=== PATIENT | male | born 1965 | race African-American/Black ===

== ENCOUNTER 2020-08-17 13:20 | Inpatient (IN) | payer BC ==
[2020-08-17] MEDS ORDERED: ALBUTEROL SO4 HFA INHALER IH ONE (14:26)
[2020-08-17 14:45] VITALS: BMI 23.2
[2020-08-17] MEDS: ALBUTEROL SO4 HFA INHALER IH PRN ×2 (14:58→22:21)
[2020-08-17] MEDS ORDERED: MAG HYDROX/AL HYDROX/SIMETH 30 ML UNIT-DOSE CUP PO PRN (15:33)
[2020-08-17] MEDS ORDERED: chlordiazePOXIDE HCL 25 MG CAPSULE PO PRN (15:33)
[2020-08-17] MEDS ORDERED: MENTHOL/PHENOL 1 EACH UD MM PRN (15:33)
[2020-08-17] MEDS ORDERED: MAGNESIUM HYDROX 2400MG/30ML ORAL SUSPENSION 30 ML CUP PO PRN (15:33)
[2020-08-17] MEDS ORDERED: NICOTINE POLACRILEX 2 MG GUM BUC PRN (15:33)
[2020-08-17] MEDS ORDERED: ACETAMINOPHEN 325 MG TABLET (FP) PO PRN ×2 (15:33)
[2020-08-17] MEDS ORDERED: BISMUTH SUBSALICYLATE 524 MG/30 ML UD PO PRN (15:33)
[2020-08-17] MEDS ORDERED: MAGNESIUM CITRATE 300 ML BOTTLE PO PRN (15:33)
[2020-08-17] MEDS ORDERED: ONDANSETRON *ODT* 4 MG TABLET SL PRN (15:33)
[2020-08-17] MEDS: LISINOPRIL 20 MG TABLET PO SCH (17:46)
[2020-08-17] MEDS: chlordiazePOXIDE HCL 25 MG CAPSULE PO SCH ×2 (17:46→22:18)
[2020-08-17] MEDS: predniSONE 20 MG TABLET (UD) PO SCH (17:46)
[2020-08-17] MEDS: hydrOXYzine PAMOATE 25 MG CAPSULE (FP) PO SCH ×2 (18:03→22:18)
[2020-08-17] MEDS: CLOTRIMAZOLE 1% CREAM 15 GM TUBE TP SCH (22:18)
[2020-08-17] MEDS: THIAMINE HCL 100 MG TABLET (FP) PO SCH (22:18)
[2020-08-17] MEDS: MELATONIN 5 MG TABLETS PO SCH (22:19)
[2020-08-18] MEDS: chlordiazePOXIDE HCL 25 MG CAPSULE PO SCH ×4 (07:02→22:15)
[2020-08-18] MEDS: hydrOXYzine PAMOATE 25 MG CAPSULE (FP) PO SCH ×5 (07:02→22:15)
[2020-08-18] MEDS ORDERED: METHADONE HCL 10 MG TABLET PO SCH (09:30)
[2020-08-18] MEDS ORDERED: METHADONE HCL 40 MG DISPERSABLE TABLET ONE (09:46)
[2020-08-18] MEDS ORDERED: METHADONE HCL 10 MG TABLET ONE (09:46)
[2020-08-18] MEDS: predniSONE 20 MG TABLET (UD) PO SCH (10:25)
[2020-08-18] MEDS: LISINOPRIL 20 MG TABLET PO SCH (10:25)
[2020-08-18] MEDS: PRENATAL VITAMINS W/ FOLIC ACID TABLET (FP) PO SCH (10:25)
[2020-08-18] MEDS: CLOTRIMAZOLE 1% CREAM 15 GM TUBE TP SCH ×2 (10:26→22:17)
[2020-08-18] MEDS: METHADONE 120 MG, METHADONE 20 MG PO SCH (10:26)
[2020-08-18] MEDS: IBUPROFEN 400 MG TABLET (FP) PO PRN (10:27)
[2020-08-18 10:37] LABS: HEMATOCRIT 38.5 % (35.4-49); HEMOGLOBIN 13.1 GM/dL (11.7-16.9); MCH 31.5 pg (25.7-33.7); MCHC 33.9 g/dl (32.0-35.9); MEAN CELL VOLUME 92.9 fl (80-96); MEAN PLT VOLUME 9.3 fl (7.5-11.1); PLATELET COUNT 350 K/MM3 (134-434); RBC 4.15 M/mm3 (4.00-5.60); RDW 16.1 % (11.9-15.9); WHITE BLOOD COUNT 5.8 K/mm3 (4.0-10.0)
[2020-08-18 11:21] LABS: POTASSIUM 3.9 mmol/L (3.5-5.1)
[2020-08-18 11:25] LABS: ALBUMIN 3.4 g/dl (3.4-5.0); BLOOD UREA NITROGEN 11.7 mg/dL (7-18)
[2020-08-18 11:28] LABS: CREATININE 1.1 mg/dL (0.55-1.3)
[2020-08-18 11:29] LABS: BILIRUBIN,TOTAL 0.5 mg/dL (0.2-1)
[2020-08-18] MEDS: BUDESONIDE/FORMETEROL FUMARATE 160/4.5 mcg INHALER IH SCH ×2 (13:44→22:29)
[2020-08-18] MEDS: ALBUTEROL SO4 HFA INHALER IH PRN ×2 (14:03→22:29)
[2020-08-18] MEDS ORDERED: ALBUTEROL SO4 2.5/IPRATROPIUM 0.5 INH SOL 3 ML VIAL.NEB. NEB PRN (15:08)
[2020-08-18] MEDS: ALBUTEROL SO4 2.5/IPRATROPIUM 0.5 INH SOL 3 ML VIAL.NEB. NEB SCH ×2 (18:11→22:29)
[2020-08-18] MEDS ORDERED: MASKS NR ONE (20:27)
[2020-08-18] MEDS: MELATONIN 5 MG TABLETS PO SCH (22:15)
[2020-08-18] MEDS: HALOPERIDOL 5 MG TABLET PO SCH (22:15)
[2020-08-18] MEDS: THIAMINE HCL 100 MG TABLET (FP) PO SCH (22:15)
[2020-08-19] MEDS: ALBUTEROL SO4 2.5/IPRATROPIUM 0.5 INH SOL 3 ML VIAL.NEB. NEB SCH ×4 (03:30→21:27)
[2020-08-19] MEDS ORDERED: METHADONE HCL 10 MG TABLET ONE (05:00)
[2020-08-19] MEDS ORDERED: METHADONE HCL 40 MG DISPERSABLE TABLET ONE (05:01)
[2020-08-19] MEDS: METHADONE 120 MG, METHADONE 20 MG PO SCH (06:08)
[2020-08-19] MEDS: hydrOXYzine PAMOATE 25 MG CAPSULE (FP) PO SCH ×5 (06:08→21:44)
[2020-08-19] MEDS: chlordiazePOXIDE HCL 25 MG CAPSULE PO SCH ×4 (06:08→22:39)
[2020-08-19] MEDS: PRENATAL VITAMINS W/ FOLIC ACID TABLET (FP) PO SCH (10:16)
[2020-08-19] MEDS: predniSONE 20 MG TABLET (UD) PO SCH (10:16)
[2020-08-19] MEDS: LISINOPRIL 20 MG TABLET PO SCH (10:16)
[2020-08-19] MEDS: BUDESONIDE/FORMETEROL FUMARATE 160/4.5 mcg INHALER IH SCH ×2 (10:17→21:57)
[2020-08-19] MEDS: CLOTRIMAZOLE 1% CREAM 15 GM TUBE TP SCH ×2 (10:17→21:56)
[2020-08-19] MEDS: METHOCARBAMOL 500 MG TABLET PO PRN ×2 (13:29→21:59)
[2020-08-19] MEDS: THIAMINE HCL 100 MG TABLET (FP) PO SCH (21:44)
[2020-08-19] MEDS: HALOPERIDOL 5 MG TABLET PO SCH (21:45)
[2020-08-19] MEDS: MELATONIN 5 MG TABLETS PO SCH (21:46)
[2020-08-19] MEDS: IBUPROFEN 400 MG TABLET (FP) PO PRN (21:59)
[2020-08-20] MEDS ORDERED: chlordiazePOXIDE HCL 10 MG CAPSULE PO PRN
[2020-08-20] MEDS: ALBUTEROL SO4 HFA INHALER IH PRN ×4 (01:26→22:21)
[2020-08-20] MEDS: METHOCARBAMOL 500 MG TABLET PO PRN ×2 (03:22→16:32)
[2020-08-20] MEDS: IBUPROFEN 400 MG TABLET (FP) PO PRN ×2 (03:23→17:47)
[2020-08-20] MEDS: ALBUTEROL SO4 2.5/IPRATROPIUM 0.5 INH SOL 3 ML VIAL.NEB. NEB SCH ×4 (03:28→22:10)
[2020-08-20] MEDS ORDERED: METHADONE HCL 10 MG TABLET ONE (04:38)
[2020-08-20] MEDS ORDERED: METHADONE HCL 40 MG DISPERSABLE TABLET ONE (04:39)
[2020-08-20] MEDS: METHADONE 120 MG, METHADONE 20 MG PO SCH (06:19)
[2020-08-20] MEDS: hydrOXYzine PAMOATE 25 MG CAPSULE (FP) PO SCH ×5 (06:20→22:22)
[2020-08-20] MEDS: chlordiazePOXIDE HCL 10 MG CAPSULE PO SCH ×4 (06:20→22:22)
[2020-08-20] MEDS: LISINOPRIL 20 MG TABLET PO SCH (10:22)
[2020-08-20] MEDS: predniSONE 20 MG TABLET (UD) PO SCH (10:22)
[2020-08-20] MEDS: BUDESONIDE/FORMETEROL FUMARATE 160/4.5 mcg INHALER IH SCH ×2 (10:22→22:20)
[2020-08-20] MEDS: PRENATAL VITAMINS W/ FOLIC ACID TABLET (FP) PO SCH (10:23)
[2020-08-20] MEDS: CLOTRIMAZOLE 1% CREAM 15 GM TUBE TP SCH ×2 (10:23→22:21)
[2020-08-20] MEDS ORDERED: GABAPENTIN 100 MG CAPSULE PO ONE (20:08)
[2020-08-20] MEDS: MELATONIN 5 MG TABLETS PO SCH (22:22)
[2020-08-20] MEDS: THIAMINE HCL 100 MG TABLET (FP) PO SCH (22:22)
[2020-08-20] MEDS: HALOPERIDOL 5 MG TABLET PO SCH (22:26)
[2020-08-21] MEDS: ALBUTEROL SO4 2.5/IPRATROPIUM 0.5 INH SOL 3 ML VIAL.NEB. NEB SCH ×4 (04:09→21:50)
[2020-08-21] MEDS ORDERED: METHADONE HCL 10 MG TABLET ONE (04:59)
[2020-08-21] MEDS ORDERED: METHADONE HCL 40 MG DISPERSABLE TABLET ONE (05:00)
[2020-08-21] MEDS: hydrOXYzine PAMOATE 25 MG CAPSULE (FP) PO SCH ×5 (05:59→22:31)
[2020-08-21] MEDS: chlordiazePOXIDE HCL 10 MG CAPSULE PO SCH ×2 (05:59→18:09)
[2020-08-21] MEDS: METHADONE 120 MG, METHADONE 20 MG PO SCH (06:00)
[2020-08-21] MEDS: IBUPROFEN 400 MG TABLET (FP) PO PRN ×2 (06:03→18:11)
[2020-08-21] MEDS: ALBUTEROL SO4 HFA INHALER IH PRN (09:18)
[2020-08-21] MEDS: predniSONE 20 MG TABLET (UD) PO SCH (09:40)
[2020-08-21] MEDS: CLOTRIMAZOLE 1% CREAM 15 GM TUBE TP SCH ×2 (09:40→22:31)
[2020-08-21] MEDS: BUDESONIDE/FORMETEROL FUMARATE 160/4.5 mcg INHALER IH SCH ×2 (09:41→22:30)
[2020-08-21] MEDS: LISINOPRIL 20 MG TABLET PO SCH (09:41)
[2020-08-21] MEDS: PRENATAL VITAMINS W/ FOLIC ACID TABLET (FP) PO SCH (09:41)
[2020-08-21] MEDS ORDERED: amLODIPine BESYLATE 5 MG TABLET (FP) PO ONE (13:30)
[2020-08-21] MEDS: METHOCARBAMOL 500 MG TABLET PO PRN (18:10)
[2020-08-21] MEDS ORDERED: IBUPROFEN 400 MG TABLET (FP) PO ONE (20:10)
[2020-08-21] MEDS ORDERED: GABAPENTIN 100 MG CAPSULE PO ONE (20:10)
[2020-08-21] MEDS: HALOPERIDOL 5 MG TABLET PO SCH (22:30)
[2020-08-21] MEDS: THIAMINE HCL 100 MG TABLET (FP) PO SCH (22:30)
[2020-08-21] MEDS: MELATONIN 5 MG TABLETS PO SCH (22:31)
[2020-08-22] MEDS: ALBUTEROL SO4 HFA INHALER IH PRN (03:56)
[2020-08-22] MEDS ORDERED: METHADONE HCL 10 MG TABLET ONE (04:34)
[2020-08-22] MEDS ORDERED: METHADONE HCL 40 MG DISPERSABLE TABLET ONE (04:34)
[2020-08-22] MEDS ORDERED: chlordiazePOXIDE HCL 10 MG CAPSULE PO ONE (05:00)
[2020-08-22] MEDS: METHADONE 120 MG, METHADONE 20 MG PO SCH (05:56)
[2020-08-22] MEDS: hydrOXYzine PAMOATE 25 MG CAPSULE (FP) PO SCH ×2 (05:57→10:03)
[2020-08-22] MEDS: ALBUTEROL SO4 2.5/IPRATROPIUM 0.5 INH SOL 3 ML VIAL.NEB. NEB SCH (09:35)
[2020-08-22] MEDS: predniSONE 20 MG TABLET (UD) PO SCH (09:35)
[2020-08-22] MEDS: PRENATAL VITAMINS W/ FOLIC ACID TABLET (FP) PO SCH (09:35)
[2020-08-22] MEDS: CLOTRIMAZOLE 1% CREAM 15 GM TUBE TP SCH (09:54)
[2020-08-22] MEDS: LISINOPRIL 20 MG TABLET PO SCH (09:54)
[2020-08-22] MEDS: BUDESONIDE/FORMETEROL FUMARATE 160/4.5 mcg INHALER IH SCH (10:02)
[2020-08-22 13:57] VITALS: BP 128/75; PULSE 94; TEMP 97.5
== END 2020-08-22 13:23 | disposition home or self-care (01) | DRG 773 ==
LOC: YASAS 13:20 → Y3N 15:57
PROVIDERS: ADMIT Allergy & Immunology; ATTEND Allergy & Immunology
PROC: HZ2ZZZZ Detoxification Services for Substance Abuse Treatment (ICD-10-PCS; principal; 2020-08-17)
DX: F10.230 Alcohol dependence with withdrawal, uncomplicated (principal); F11.20 Opioid dependence, uncomplicated; F13.230 Sedative, hypnotic or anxiolytic dependence with withdrawal, uncomplicated; F14.20 Cocaine dependence, uncomplicated; F20.9 Schizophrenia, unspecified; I10 Essential (primary) hypertension; R73.09 Other abnormal glucose; J45.901 Unspecified asthma with (acute) exacerbation; Z96.641 Presence of right artificial hip joint; Z86.19 Personal history of other infectious and parasitic diseases; Z56.0 Unemployment, unspecified
CPT/HCPCS: 36415; 80053; 82962; 85027; 86593; 86780; 93005; 93010; 94640; C9803; U0003

== ENCOUNTER 2022-02-01 19:01 | Inpatient (IN) | payer BC ==
[2022-02-01 19:11] VITALS: BMI 25.0
[2022-02-01] MEDS ORDERED: methylPREDNISolone NA SUCC 125 MG/2 ML VIAL IVPB ONE (19:38)
[2022-02-01] MEDS ORDERED: ALBUTEROL SO4 2.5/IPRATROPIUM 0.5 INH SOL 3 ML VIAL.NEB. NEB ONE ×2 (19:56→23:33)
[2022-02-01] MEDS ORDERED: methylPREDNISolone NA SUCC 125 MG/2 ML VIAL ONE (19:56)
[2022-02-01] MEDS: ALBUTEROL SO4 2.5/IPRATROPIUM 0.5 INH SOL 3 ML VIAL.NEB. NEB PRN ×2 (20:18→23:37)
[2022-02-01] MEDS ORDERED: methaDONE HCL 10 MG TABLET (FOR DETOX USE ONLY) PO ONE (21:03)
[2022-02-01 21:12] LABS: EOS % 7.5 % (0-4.5); HEMATOCRIT 36.4 % (35.4-49); HEMOGLOBIN 12.3 GM/dL (11.7-16.9); LYMPH % 35.6 % (8-40); MCH 30.4 pg (25.7-33.7); MCHC 33.7 g/dl (32.0-35.9); MEAN PLT VOLUME 8.7 fl (7.5-11.1); NEUT % 45.9 % (42.8-82.8); PLATELET COUNT 287 10^3/uL (134-434); RBC 4.05 M/mm3 (4.00-5.60); WHITE BLOOD COUNT 5.9 K/mm3 (4.0-10.0)
[2022-02-01] MEDS ORDERED: methaDONE HCL 10 MG TABLET ONE (21:17)
[2022-02-01 21:27] LABS: ALBUMIN 2.7 g/dl (3.4-5.0); CALCIUM 8.4 mg/dL (8.5-10.1)
[2022-02-01 21:30] LABS: CREATININE 0.9 mg/dL (0.55-1.3)
[2022-02-01 21:32] LABS: BILIRUBIN,TOTAL 0.2 mg/dL (0.2-1); TOT PROT 6.9 g/dl (6.4-8.2)
[2022-02-01] MEDS ORDERED: DALBAVANCIN HCL 1,500 MG in DEXTROSE 5%-WATER - 500 ML IVPB ONE (22:28)
[2022-02-01] MEDS ORDERED: DALBAVANCIN HCL 500 MG VIAL (RESTRICTED TO ID ONLY) IVPB ONE (22:32)
[2022-02-01] MEDS ORDERED: ALBUTEROL SO4 0.083% IH SOL 2.5 MG/3 ML VIAL.NEB. NEB ONE ×2 (23:33→23:37)
[2022-02-01] MEDS ORDERED: AZITHROMYCIN IVPB 500 MG in DEXTROSE 5%-WATER - 250 ML IVPB ONE (23:59)
[2022-02-02] MEDS ORDERED: AZITHROMYCIN IVPB 500 MG/250 ML BAG IVPB ONE ×2 (00:16→00:21)
[2022-02-02] MEDS ORDERED: ALBUTEROL SO4 2.5/IPRATROPIUM 0.5 INH SOL 3 ML VIAL.NEB. NEB PRN (02:36)
[2022-02-02 03:03] LABS: PH,URINE 6.5 (5.0-8.0); URINE APPEARANCE CLEAR; URINE BILIRUBIN NEGATIVE (NEGATIVE); URINE COLOR YELLOW; URINE GLUCOSE (UA) NEGATIVE (NEGATIVE); URINE KETONE NEGATIVE (NEGATIVE); URINE LEUK ESTERASE NEGATIVE (NEGATIVE); URINE NITRITE NEGATIVE (NEGATIVE); URINE PROTEIN TRACE (NEGATIVE)
[2022-02-02 03:14] LABS: METHADONE, UR NEGATIVE (NEGATIVE); URINE AMPHETAMINES NEGATIVE (NEGATIVE); URINE BARBITURATES NEGATIVE (NEGATIVE)
[2022-02-02 03:15] LABS: PHENCYCLIDINE,URINE NEGATIVE (NEGATIVE); URINE BENZODIAZEPINES NEGATIVE (NEGATIVE)
[2022-02-02 03:16] LABS: COCAINE, UR POSITIVE (NEGATIVE); OPIATES, URI POSITIVE (NEGATIVE)
[2022-02-02] MEDS: methylPREDNISolone NA SUCC 40 MG/1 ML VIAL IVPUSH SCH ×3 (06:28→22:05)
[2022-02-02] MEDS ORDERED: cefTRIAXone SODIUM 1 GM VIAL ONE (09:09)
[2022-02-02] MEDS ORDERED: DEXTROSE 5%-WATER - 50 ML IVPB ONE (09:09)
[2022-02-02] MEDS: CLINDAMYCIN 600MG PREMIX IVPB 600 MG/50 ML BAG IVPB SCH ×2 (09:17→18:10)
[2022-02-02] MEDS: CEFTRIAXONE 1 GM in DEXTROSE 5%-WATER - 50 ML IVPB SCH ×2 (09:17→10:17)
[2022-02-02] MEDS: ENOXAPARIN NA (PORCINE) 40 MG/0.4 ML DISP.SYRIN SQ SCH (09:17)
[2022-02-02] MEDS ORDERED: LORazepam 2 MG/ML SDV VIAL IVPUSH ONE ×2 (09:58→10:15)
[2022-02-02] MEDS ORDERED: methaDONE HCL 10 MG TABLET PO ONE ×2 (10:08→11:07)
[2022-02-02] MEDS: BUDESONIDE/FORMETEROL FUMARATE 80/4.5 mcg INHALER IH SCH (10:13)
[2022-02-02] MEDS ORDERED: LORazepam 1 MG TABLET PO PRN (10:15)
[2022-02-02 10:57] LABS: BASO % 0.7 % (0-2.0); EOS % 0.3 % (0-4.5); HEMATOCRIT 37.3 % (35.4-49); HEMOGLOBIN 12.3 GM/dL (11.7-16.9); LYMPH % 9.6 % (8-40); MCHC 33.1 g/dl (32.0-35.9); MEAN CELL VOLUME 90.8 fl (80-96); MEAN PLT VOLUME 8.8 fl (7.5-11.1); MONO % 1.5 % (3.8-10.2); NEUT % 87.9 % (42.8-82.8); PLATELET COUNT 301 10^3/uL (134-434); RBC 4.11 M/mm3 (4.00-5.60); RDW 15.1 % (11.9-15.9); WHITE BLOOD COUNT 7.7 K/mm3 (4.0-10.0)
[2022-02-02 11:18] LABS: CALCIUM 8.7 mg/dL (8.5-10.1)
[2022-02-02 11:19] LABS: ALBUMIN 2.6 g/dl (3.4-5.0); MAGNESIUM 2.3 mg/dL (1.8-2.4)
[2022-02-02 11:22] LABS: CREATININE 0.9 mg/dL (0.55-1.3); PHOSPHOROUS 2.9 mg/dL (2.5-4.9)
[2022-02-02 11:23] LABS: BILIRUBIN,TOTAL 0.2 mg/dL (0.2-1); TOT PROT 7.2 g/dl (6.4-8.2)
[2022-02-02] MEDS: LORazepam 2 MG TABLET PO SCH ×2 (12:49→18:13)
[2022-02-02] MEDS: LORazepam 2 MG/ML SDV VIAL IVPUSH PRN ×2 (13:38→21:00)
[2022-02-02] MEDS ORDERED: LORazepam 1 MG TABLET PO SCH (17:40)
[2022-02-02] MEDS: LORazepam 1 MG TABLET PO SCH (18:10)
[2022-02-02] MEDS: cloNIDine HCL 0.1 MG TABLET PO PRN (21:00)
[2022-02-02] MEDS: ALBUTEROL SO4 2.5/IPRATROPIUM 0.5 INH SOL 3 ML VIAL.NEB. NEB PRN (21:34)
[2022-02-03] MEDS: BUDESONIDE/FORMETEROL FUMARATE 80/4.5 mcg INHALER IH SCH ×3 (00:16→21:23)
[2022-02-03] MEDS: LORazepam 1 MG TABLET PO SCH ×4 (00:17→17:43)
[2022-02-03] MEDS: MONTELUKAST NA 5 MG TAB.CHEW PO SCH ×2 (00:17→21:22)
[2022-02-03] MEDS: LORazepam 2 MG/ML SDV VIAL IVPUSH PRN ×2 (00:18→21:23)
[2022-02-03] MEDS ORDERED: HALOPERIDOL LACTATE 5 MG/ML IM ONE (00:53)
[2022-02-03] MEDS: CLINDAMYCIN 600MG PREMIX IVPB 600 MG/50 ML BAG IVPB SCH ×2 (04:30→11:23)
[2022-02-03] MEDS: methylPREDNISolone NA SUCC 40 MG/1 ML VIAL IVPUSH SCH ×3 (06:22→21:22)
[2022-02-03 07:39] LABS: BASO % 0.5 % (0-2.0); HEMATOCRIT 39.5 % (35.4-49); HEMOGLOBIN 12.8 GM/dL (11.7-16.9); LYMPH % 10.3 % (8-40); MCH 29.6 pg (25.7-33.7); MCHC 32.4 g/dl (32.0-35.9); MEAN CELL VOLUME 91.3 fl (80-96); MEAN PLT VOLUME 9.5 fl (7.5-11.1); MONO % 3.1 % (3.8-10.2); NEUT % 86.1 % (42.8-82.8); PLATELET COUNT 363 10^3/uL (134-434); RBC 4.33 M/mm3 (4.00-5.60); RDW 14.8 % (11.9-15.9); WHITE BLOOD COUNT 13.1 K/mm3 (4.0-10.0)
[2022-02-03 08:02] LABS: ALBUMIN 2.5 g/dl (3.4-5.0); CALCIUM 9.1 mg/dL (8.5-10.1)
[2022-02-03 08:03] LABS: BLOOD UREA NITROGEN 13.5 mg/dL (7-18); MAGNESIUM 2.5 mg/dL (1.8-2.4)
[2022-02-03 08:05] LABS: CREATININE 0.9 mg/dL (0.55-1.3)
[2022-02-03 08:06] LABS: PHOSPHOROUS 3.4 mg/dL (2.5-4.9)
[2022-02-03 08:07] LABS: BILIRUBIN,TOTAL 0.3 mg/dL (0.2-1)
[2022-02-03] MEDS: ALBUTEROL SO4 2.5/IPRATROPIUM 0.5 INH SOL 3 ML VIAL.NEB. NEB PRN ×3 (09:50→20:59)
[2022-02-03] MEDS ORDERED: DEXTROSE 5%-WATER - 50 ML IVPB ONE (10:08)
[2022-02-03] MEDS ORDERED: cefTRIAXone SODIUM 1 GM VIAL ONE (10:08)
[2022-02-03] MEDS: CEFTRIAXONE 1 GM in DEXTROSE 5%-WATER - 50 ML IVPB SCH (10:43)
[2022-02-03] MEDS: ENOXAPARIN NA (PORCINE) 40 MG/0.4 ML DISP.SYRIN SQ SCH (10:44)
[2022-02-03] MEDS ORDERED: methaDONE HCL 10 MG TABLET PO ONE (11:09)
[2022-02-03] MEDS ORDERED: DOXYCYCLINE HYCLATE 100 MG VIAL ONE ×2 (14:51→21:10)
[2022-02-03] MEDS ORDERED: DEXTROSE 5%-WATER 100 ML IVPB ONE ×2 (14:52→21:10)
[2022-02-03] MEDS: DOXYCYCLINE INJECTION 100 MG in DEXTROSE 5%-WATER 100 ML IVPB SCH ×2 (14:59→21:23)
[2022-02-03] MEDS: cloNIDine HCL 0.1 MG TABLET PO PRN (21:23)
[2022-02-04] MEDS: LORazepam 1 MG TABLET PO SCH ×5 (02:27→22:11)
[2022-02-04] MEDS: methylPREDNISolone NA SUCC 40 MG/1 ML VIAL IVPUSH SCH ×3 (06:04→22:03)
[2022-02-04] MEDS ORDERED: methaDONE HCL 10 MG TABLET ONE (09:13)
[2022-02-04] MEDS: ENOXAPARIN NA (PORCINE) 40 MG/0.4 ML DISP.SYRIN SQ SCH (09:26)
[2022-02-04] MEDS: BUDESONIDE/FORMETEROL FUMARATE 80/4.5 mcg INHALER IH SCH ×2 (09:36→22:44)
[2022-02-04] MEDS: DOXYCYCLINE INJECTION 100 MG in DEXTROSE 5%-WATER 100 ML IVPB SCH ×2 (12:22→22:45)
[2022-02-04] MEDS: CEFTRIAXONE 1 GM in DEXTROSE 5%-WATER - 50 ML IVPB SCH (12:22)
[2022-02-04] MEDS: LORazepam 2 MG/ML SDV VIAL IVPUSH PRN (15:20)
[2022-02-04 16:08] LABS: SARS-CoV-2 NAA Not Detected (Not Detected)
[2022-02-04] MEDS ORDERED: DOXYCYCLINE HYCLATE 100 MG VIAL ONE (20:56)
[2022-02-04] MEDS ORDERED: DEXTROSE 5%-WATER 100 ML IVPB ONE (20:57)
[2022-02-04] MEDS: MONTELUKAST NA 5 MG TAB.CHEW PO SCH (22:03)
[2022-02-05] MEDS: LORazepam 0.5 MG TABLET PO SCH ×6 (07:00→22:22)
[2022-02-05] MEDS: methylPREDNISolone NA SUCC 40 MG/1 ML VIAL IVPUSH SCH ×3 (07:07→22:23)
[2022-02-05] MEDS ORDERED: methaDONE HCL 10 MG TABLET PO ONE ×2 (07:45→18:48)
[2022-02-05] MEDS: CEFTRIAXONE 1 GM in DEXTROSE 5%-WATER - 50 ML IVPB SCH ×2 (09:32→13:13)
[2022-02-05] MEDS: DOXYCYCLINE INJECTION 100 MG in DEXTROSE 5%-WATER 100 ML IVPB SCH ×3 (09:32→22:23)
[2022-02-05] MEDS: ENOXAPARIN NA (PORCINE) 40 MG/0.4 ML DISP.SYRIN SQ SCH (09:36)
[2022-02-05] MEDS: BUDESONIDE/FORMETEROL FUMARATE 80/4.5 mcg INHALER IH SCH ×2 (09:36→22:26)
[2022-02-05 11:08] LABS: BASO % 0.9 % (0-2.0); EOS % 0.1 % (0-4.5); HEMATOCRIT 40.4 % (35.4-49); HEMOGLOBIN 13.5 GM/dL (11.7-16.9); LYMPH % 21.3 % (8-40); MCH 29.9 pg (25.7-33.7); MCHC 33.3 g/dl (32.0-35.9); MEAN CELL VOLUME 89.8 fl (80-96); MEAN PLT VOLUME 8.5 fl (7.5-11.1); MONO % 7.8 % (3.8-10.2); NEUT % 69.9 % (42.8-82.8); PLATELET COUNT 469 10^3/uL (134-434); RDW 15.2 % (11.9-15.9); WHITE BLOOD COUNT 11.3 K/mm3 (4.0-10.0)
[2022-02-05 11:53] LABS: CALCIUM 9.1 mg/dL (8.5-10.1)
[2022-02-05 11:54] LABS: MAGNESIUM 2.6 mg/dL (1.8-2.4)
[2022-02-05 11:58] LABS: CREATININE 0.9 mg/dL (0.55-1.3); PHOSPHOROUS 3.4 mg/dL (2.5-4.9)
[2022-02-05] MEDS ORDERED: DOXYCYCLINE HYCLATE 100 MG VIAL ONE ×2 (13:08→22:17)
[2022-02-05] MEDS ORDERED: cefTRIAXone SODIUM 1 GM VIAL ONE (13:09)
[2022-02-05] MEDS ORDERED: DEXTROSE 5%-WATER - 50 ML IVPB ONE (13:09)
[2022-02-05] MEDS ORDERED: DEXTROSE 5%-WATER 100 ML IVPB ONE ×2 (13:09→22:17)
[2022-02-05] MEDS ORDERED: LORazepam 0.5 MG TABLET PO PRN ×2 (15:27)
[2022-02-05] MEDS ORDERED: ALBUTEROL SO4 2.5/IPRATROPIUM 0.5 INH SOL 3 ML VIAL.NEB. NEB PRN (15:27)
[2022-02-05] MEDS ORDERED: LORazepam 2 MG/ML SDV VIAL IVPUSH PRN (15:27)
[2022-02-05] MEDS ORDERED: HALOPERIDOL 2 MG TABLET PO ONE (16:06)
[2022-02-05] MEDS: traZODone HCL 50 MG TABLET (FP) PO SCH (22:22)
[2022-02-05] MEDS: MONTELUKAST NA 5 MG TAB.CHEW PO SCH (22:25)
[2022-02-05] MEDS: OLANZapine 2.5 MG TABLET PO SCH (22:39)
[2022-02-06] MEDS ORDERED: LORazepam 0.5 MG TABLET PO ONE ×2 (05:00)
[2022-02-06] MEDS: methylPREDNISolone NA SUCC 40 MG/1 ML VIAL IVPUSH SCH (06:52)
[2022-02-06 09:03] LABS: BASO % 0.8 % (0-2.0); HEMOGLOBIN 12.4 GM/dL (11.7-16.9); LYMPH % 10.4 % (8-40); MCH 29.3 pg (25.7-33.7); MCHC 32.5 g/dl (32.0-35.9); MEAN CELL VOLUME 90.2 fl (80-96); MEAN PLT VOLUME 8.3 fl (7.5-11.1); MONO % 1.5 % (3.8-10.2); NEUT % 87.3 % (42.8-82.8); PLATELET COUNT 463 10^3/uL (134-434); RBC 4.22 M/mm3 (4.00-5.60); RDW 15.2 % (11.9-15.9); WHITE BLOOD COUNT 11.9 K/mm3 (4.0-10.0)
[2022-02-06] MEDS ORDERED: methaDONE HCL 10 MG TABLET ONE (10:50)
[2022-02-06] MEDS ORDERED: DOXYCYCLINE HYCLATE 100 MG VIAL ONE (10:50)
[2022-02-06] MEDS ORDERED: DEXTROSE 5%-WATER 100 ML IVPB ONE (10:50)
[2022-02-06] MEDS ORDERED: DEXTROSE 5%-WATER - 50 ML IVPB ONE (10:51)
[2022-02-06] MEDS ORDERED: cefTRIAXone SODIUM 1 GM VIAL ONE (10:51)
[2022-02-06] MEDS: CEFTRIAXONE 1 GM in DEXTROSE 5%-WATER - 50 ML IVPB SCH ×2 (10:54→11:25)
[2022-02-06] MEDS: BUDESONIDE/FORMETEROL FUMARATE 80/4.5 mcg INHALER IH SCH ×2 (10:55→21:32)
[2022-02-06] MEDS: ENOXAPARIN NA (PORCINE) 40 MG/0.4 ML DISP.SYRIN SQ SCH (10:55)
[2022-02-06] MEDS: DOXYCYCLINE INJECTION 100 MG in DEXTROSE 5%-WATER 100 ML IVPB SCH ×2 (10:56→11:25)
[2022-02-06] MEDS ORDERED: predniSONE 20 MG TABLET (UD) PO SCH (11:45)
[2022-02-06] MEDS: DOXYCYCLINE HYCLATE 100 MG CAPSULE PO SCH ×2 (12:51→17:11)
[2022-02-06] MEDS: CEFUROXIME AXETIL 500 MG TABLET PO SCH ×2 (12:51→21:32)
[2022-02-06] MEDS ORDERED: ALBUTEROL SO4 0.083% IH SOL 2.5 MG/3 ML VIAL.NEB. NEB PRN (13:00)
[2022-02-06] MEDS: ALBUTEROL SO4 2.5/IPRATROPIUM 0.5 INH SOL 3 ML VIAL.NEB. NEB SCH ×2 (15:55→19:35)
[2022-02-06] MEDS: OLANZapine 2.5 MG TABLET PO SCH (21:26)
[2022-02-06] MEDS: traZODone HCL 50 MG TABLET (FP) PO SCH (21:28)
[2022-02-06] MEDS: MONTELUKAST NA 5 MG TAB.CHEW PO SCH (21:28)
[2022-02-06] MEDS ORDERED: predniSONE 20 MG TABLET (UD) PO ONE (22:00)
[2022-02-07] MEDS: ALBUTEROL SO4 2.5/IPRATROPIUM 0.5 INH SOL 3 ML VIAL.NEB. NEB SCH ×4 (08:45→20:00)
[2022-02-07 09:30] LABS: BASO % 0.3 % (0-2.0); HEMATOCRIT 38.1 % (35.4-49); HEMOGLOBIN 12.8 GM/dL (11.7-16.9); LYMPH % 10.1 % (8-40); MCH 30.2 pg (25.7-33.7); MCHC 33.7 g/dl (32.0-35.9); MEAN CELL VOLUME 89.8 fl (80-96); MEAN PLT VOLUME 8.2 fl (7.5-11.1); MONO % 3.2 % (3.8-10.2); NEUT % 86.4 % (42.8-82.8); PLATELET COUNT 453 10^3/uL (134-434); RBC 4.25 M/mm3 (4.00-5.60); RDW 15.4 % (11.9-15.9); WHITE BLOOD COUNT 13.5 K/mm3 (4.0-10.0)
[2022-02-07 09:56] LABS: CALCIUM 8.9 mg/dL (8.5-10.1)
[2022-02-07 09:57] LABS: BLOOD UREA NITROGEN 31.3 mg/dL (7-18)
[2022-02-07] MEDS ORDERED: predniSONE 20 MG TABLET (UD) PO SCH (10:00)
[2022-02-07] MEDS ORDERED: methaDONE HCL 10 MG TABLET PO ONE ×2 (10:00)
[2022-02-07] MEDS: DOXYCYCLINE HYCLATE 100 MG CAPSULE PO SCH ×2 (10:05→17:08)
[2022-02-07] MEDS: ENOXAPARIN NA (PORCINE) 40 MG/0.4 ML DISP.SYRIN SQ SCH (10:05)
[2022-02-07] MEDS: CEFUROXIME AXETIL 500 MG TABLET PO SCH ×2 (10:05→22:19)
[2022-02-07] MEDS: BUDESONIDE/FORMETEROL FUMARATE 80/4.5 mcg INHALER IH SCH ×2 (10:05→22:21)
[2022-02-07] MEDS: predniSONE 20 MG TABLET (UD) PO SCH (10:05)
[2022-02-07] MEDS ORDERED: SODIUM ZIRCONIUM CYCLOSILICATE (LOKELMA) 5 GM PACKET PO SCH (15:00)
[2022-02-07] MEDS: traZODone HCL 50 MG TABLET (FP) PO SCH (22:19)
[2022-02-07] MEDS: OLANZapine 2.5 MG TABLET PO SCH (22:20)
[2022-02-07] MEDS: MONTELUKAST NA 5 MG TAB.CHEW PO SCH (22:20)
[2022-02-08 06:10] VITALS: BP 121/74; PULSE 81; TEMP 98.5
[2022-02-08] MEDS: ALBUTEROL SO4 2.5/IPRATROPIUM 0.5 INH SOL 3 ML VIAL.NEB. NEB SCH ×3 (08:40→16:37)
[2022-02-08 08:55] LABS: BASO % 0.8 % (0-2.0); EOS % 0.3 % (0-4.5); HEMATOCRIT 38.1 % (35.4-49); HEMOGLOBIN 12.6 GM/dL (11.7-16.9); LYMPH % 29.2 % (8-40); MCH 29.8 pg (25.7-33.7); MCHC 33.1 g/dl (32.0-35.9); MEAN CELL VOLUME 89.9 fl (80-96); MEAN PLT VOLUME 7.9 fl (7.5-11.1); MONO % 5.2 % (3.8-10.2); NEUT % 64.5 % (42.8-82.8); PLATELET COUNT 453 10^3/uL (134-434); RBC 4.24 M/mm3 (4.00-5.60); RDW 15.4 % (11.9-15.9); WHITE BLOOD COUNT 11.5 K/mm3 (4.0-10.0)
[2022-02-08 09:16] LABS: CALCIUM 8.8 mg/dL (8.5-10.1)
[2022-02-08 09:17] LABS: BLOOD UREA NITROGEN 31.1 mg/dL (7-18)
[2022-02-08 09:20] LABS: CREATININE 0.9 mg/dL (0.55-1.3)
[2022-02-08] MEDS: predniSONE 20 MG TABLET (UD) PO SCH (10:49)
[2022-02-08] MEDS: CEFUROXIME AXETIL 500 MG TABLET PO SCH (10:50)
[2022-02-08] MEDS: DOXYCYCLINE HYCLATE 100 MG CAPSULE PO SCH (10:50)
[2022-02-08] MEDS: ENOXAPARIN NA (PORCINE) 40 MG/0.4 ML DISP.SYRIN SQ SCH (10:53)
[2022-02-08] MEDS: BUDESONIDE/FORMETEROL FUMARATE 80/4.5 mcg INHALER IH SCH (10:54)
== END 2022-02-08 16:30 | disposition other institution (70) | DRG 133 ==
LOC: JER 19:01 → JERBED 02-02 01:32 → J4W 02-02 05:54 → J8W 02-04 15:33 → J7W 02-04 22:27
PROVIDERS: ADMIT Internal Medicine; ATTEND Internal Medicine
PROC: HZ2ZZZZ Detoxification Services for Substance Abuse Treatment (ICD-10-PCS; principal; 2022-02-01)
DX: J96.01 Acute respiratory failure with hypoxia (principal); J18.9 Pneumonia, unspecified organism; J45.21 Mild intermittent asthma with (acute) exacerbation; F10.239 Alcohol dependence with withdrawal, unspecified; F11.23 Opioid dependence with withdrawal; F13.230 Sedative, hypnotic or anxiolytic dependence with withdrawal, uncomplicated; F19.10 Other psychoactive substance abuse, uncomplicated; I10 Essential (primary) hypertension; F20.9 Schizophrenia, unspecified; L97.818 Non-pressure chronic ulcer of other part of right lower leg with other specified severity; J93.9 Pneumothorax, unspecified; Z59.00 Homelessness unspecified
CPT/HCPCS: 0241U-QW; 36415; 70450-TC; 71045-TC-FY; 71275-TC; 80048; 80053; 80307; 81003; 83735; 84100; 85025; 87040; 87086; 87633; 87899; 93005; 93010; 93971-TC; 94640; 94761; 97116-GP; 97161-GP; 99285-25; C9803-CS; J0735; J0875; Q9967; U0003; U0005

== ENCOUNTER 2022-06-17 17:40 | Inpatient (IN) | payer BC ==
[2022-06-17 21:05] VITALS: BMI 21.5
[2022-06-17] MEDS ORDERED: ALBUTEROL SO4 2.5/IPRATROPIUM 0.5 INH SOL 3 ML VIAL.NEB. NEB ONE ×2 (21:28→21:36)
[2022-06-17] MEDS ORDERED: cloNIDine HCL 0.1 MG TABLET PO ONE (21:36)
[2022-06-17] MEDS ORDERED: MAG HYDROX/AL HYDROX/SIMETH 30 ML UNIT-DOSE CUP PO PRN (21:37)
[2022-06-17] MEDS ORDERED: LOPERAMIDE HCL 2 MG CAPSULE PO PRN (21:37)
[2022-06-17] MEDS ORDERED: MAGNESIUM CITRATE 300 ML BOTTLE PO PRN (21:37)
[2022-06-17] MEDS ORDERED: P-EPHED 60MG/TRIPROLIDI 2.5MG TABLET PO PRN (21:37)
[2022-06-17] MEDS ORDERED: MAGNESIUM HYDROX 2400MG/30ML ORAL SUSPENSION 30 ML CUP PO PRN (21:37)
[2022-06-17] MEDS ORDERED: cloNIDine HCL 0.1 MG TABLET ONE (21:39)
[2022-06-17] MEDS ORDERED: PATIENT'S OWN MEDICATION (NON-FORMULARY) (Walker [Ultra-Light Rollator] 1 EACH Each) MC SCH (21:45)
[2022-06-18] MEDS: ALBUTEROL SO4 HFA INHALER IH PRN ×2 (07:00→21:25)
[2022-06-18] MEDS: guaiFENesin 200 MG/10 ML 10 ML UNIT-DOSE CUPS PO PRN (07:00)
[2022-06-18] MEDS: THIAMINE HCL 100 MG TABLET (FP) PO SCH ×2 (07:02→21:24)
[2022-06-18] MEDS ORDERED: methaDONE HCL 10 MG TABLET PO SCH (07:48)
[2022-06-18] MEDS ORDERED: methaDONE 80 MG, methaDONE 20 MG PO ONE (08:00)
[2022-06-18] MEDS: PRENATAL VITAMINS W/ FOLIC ACID TABLET (FP) PO SCH (10:15)
[2022-06-18 11:09] LABS: PH,URINE 6.5 (5.0-8.0); URINE APPEARANCE CLEAR; URINE BILIRUBIN NEGATIVE (NEGATIVE); URINE COLOR YELLOW; URINE GLUCOSE (UA) 3+ (NEGATIVE); URINE KETONE NEGATIVE (NEGATIVE); URINE LEUK ESTERASE NEGATIVE (NEGATIVE); URINE NITRITE NEGATIVE (NEGATIVE); URINE PROTEIN NEGATIVE (NEGATIVE); URINE UROBILINOGEN 0.2 mg/dL (0.2-1.0)
[2022-06-18] MEDS ORDERED: ALBUTEROL SO4 2.5/IPRATROPIUM 0.5 INH SOL 3 ML VIAL.NEB. NEB SCH (14:45)
[2022-06-18] MEDS ORDERED: predniSONE 20 MG TABLET (UD) PO ONE (15:00)
[2022-06-18] MEDS: ALBUTEROL SO4 2.5/IPRATROPIUM 0.5 INH SOL 3 ML VIAL.NEB. NEB SCH (15:33)
[2022-06-18] MEDS ORDERED: PENICILLIN G BENZATHINE 2,400,000 UNIT/4 ML PFS IM ONE (15:50)
[2022-06-18] MEDS: MELATONIN 5 MG TABLETS PO PRN (21:24)
[2022-06-19] MEDS: ALBUTEROL SO4 HFA INHALER IH PRN ×3 (02:06→21:22)
[2022-06-19] MEDS: ALBUTEROL SO4 2.5/IPRATROPIUM 0.5 INH SOL 3 ML VIAL.NEB. NEB SCH ×3 (03:08→10:29)
[2022-06-19] MEDS: guaiFENesin 200 MG/10 ML 10 ML UNIT-DOSE CUPS PO PRN ×2 (06:06→14:41)
[2022-06-19] MEDS: methaDONE 80 MG, methaDONE 20 MG PO SCH (06:07)
[2022-06-19] MEDS: PRENATAL VITAMINS W/ FOLIC ACID TABLET (FP) PO SCH (09:32)
[2022-06-19] MEDS ORDERED: ALBUTEROL SO4 2.5/IPRATROPIUM 0.5 INH SOL 3 ML VIAL.NEB. NEB SCH (10:40)
[2022-06-19] MEDS ORDERED: ALBUTEROL SO4 2.5/IPRATROPIUM 0.5 INH SOL 3 ML VIAL.NEB. NEB PRN (10:42)
[2022-06-19] MEDS: guaiFENesin 600 MG TABLET.ER (FP) PO SCH ×2 (12:46→21:22)
[2022-06-19] MEDS ORDERED: predniSONE 20 MG TABLET (UD) PO ONE (14:38)
[2022-06-19] MEDS: ACETAMINOPHEN 325 MG TABLET (FP) PO PRN (14:39)
[2022-06-19] MEDS ORDERED: predniSONE 10 MG TABLET (UD) PO ONE (15:00)
[2022-06-19] MEDS: THIAMINE HCL 100 MG TABLET (FP) PO SCH (21:22)
[2022-06-19] MEDS: MELATONIN 5 MG TABLETS PO PRN (21:22)
[2022-06-19] MEDS: BACITRACIN 15 GM TUBE TOPICAL OINTMENT TP SCH (21:23)
[2022-06-20] MEDS: ALBUTEROL SO4 HFA INHALER IH PRN ×2 (06:12→19:20)
[2022-06-20] MEDS: methaDONE 80 MG, methaDONE 20 MG PO SCH (06:13)
[2022-06-20] MEDS: guaiFENesin 200 MG/10 ML 10 ML UNIT-DOSE CUPS PO PRN (06:13)
[2022-06-20] MEDS: ALBUTEROL SO4 2.5/IPRATROPIUM 0.5 INH SOL 3 ML VIAL.NEB. NEB PRN (08:15)
[2022-06-20] MEDS: PRENATAL VITAMINS W/ FOLIC ACID TABLET (FP) PO SCH (09:40)
[2022-06-20] MEDS: BACITRACIN 15 GM TUBE TOPICAL OINTMENT TP SCH ×2 (09:40→21:20)
[2022-06-20] MEDS: guaiFENesin 600 MG TABLET.ER (FP) PO SCH ×2 (09:40→21:20)
[2022-06-20] MEDS: LISINOPRIL 10 MG TABLET PO SCH (10:49)
[2022-06-20] MEDS ORDERED: predniSONE 20 MG TABLET (UD) PO ONE (15:00)
[2022-06-20] MEDS: THIAMINE HCL 100 MG TABLET (FP) PO SCH (21:20)
[2022-06-20] MEDS: MELATONIN 5 MG TABLETS PO PRN (21:20)
[2022-06-21] MEDS: ALBUTEROL SO4 HFA INHALER IH PRN ×3 (05:54→21:37)
[2022-06-21] MEDS: hydrOXYzine PAMOATE 25 MG CAPSULE (FP) PO PRN (05:55)
[2022-06-21] MEDS: methaDONE 80 MG, methaDONE 20 MG PO SCH (05:57)
[2022-06-21] MEDS: ALBUTEROL SO4 2.5/IPRATROPIUM 0.5 INH SOL 3 ML VIAL.NEB. NEB PRN (08:24)
[2022-06-21] MEDS: PRENATAL VITAMINS W/ FOLIC ACID TABLET (FP) PO SCH (10:19)
[2022-06-21] MEDS: BACITRACIN 15 GM TUBE TOPICAL OINTMENT TP SCH ×2 (10:20→21:39)
[2022-06-21] MEDS: guaiFENesin 600 MG TABLET.ER (FP) PO SCH ×2 (10:20→21:38)
[2022-06-21] MEDS: LISINOPRIL 10 MG TABLET PO SCH (10:20)
[2022-06-21] MEDS: CLOTRIMAZOLE/BETAMET DIPROP TOPICAL CREAM 45 GM TUBE TP SCH ×2 (10:20→21:38)
[2022-06-21] MEDS ORDERED: predniSONE 10 MG TABLET (UD) PO ONE (15:00)
[2022-06-21] MEDS: THIAMINE HCL 100 MG TABLET (FP) PO SCH (21:37)
[2022-06-21] MEDS: MELATONIN 5 MG TABLETS PO PRN (21:37)
[2022-06-22] MEDS: methaDONE 80 MG, methaDONE 20 MG PO SCH (06:01)
[2022-06-22] MEDS: ALBUTEROL SO4 HFA INHALER IH PRN (09:44)
[2022-06-22] MEDS: guaiFENesin 600 MG TABLET.ER (FP) PO SCH ×2 (09:45→21:26)
[2022-06-22] MEDS: BACITRACIN 15 GM TUBE TOPICAL OINTMENT TP SCH ×2 (09:45→21:25)
[2022-06-22] MEDS: LISINOPRIL 10 MG TABLET PO SCH (09:45)
[2022-06-22] MEDS: CLOTRIMAZOLE/BETAMET DIPROP TOPICAL CREAM 45 GM TUBE TP SCH ×2 (09:45→21:26)
[2022-06-22] MEDS: PRENATAL VITAMINS W/ FOLIC ACID TABLET (FP) PO SCH (09:46)
[2022-06-22] MEDS: THIAMINE HCL 100 MG TABLET (FP) PO SCH (21:26)
[2022-06-22] MEDS: MELATONIN 5 MG TABLETS PO PRN (21:26)
[2022-06-23] MEDS: ALBUTEROL SO4 HFA INHALER IH PRN (03:15)
[2022-06-23] MEDS: methaDONE 80 MG, methaDONE 20 MG PO SCH (05:59)
[2022-06-23] MEDS: CLOTRIMAZOLE/BETAMET DIPROP TOPICAL CREAM 45 GM TUBE TP SCH ×2 (09:46→21:52)
[2022-06-23] MEDS: LISINOPRIL 10 MG TABLET PO SCH (09:46)
[2022-06-23] MEDS: BACITRACIN 15 GM TUBE TOPICAL OINTMENT TP SCH ×2 (09:46→21:52)
[2022-06-23] MEDS: guaiFENesin 600 MG TABLET.ER (FP) PO SCH ×2 (09:47→22:00)
[2022-06-23] MEDS: PRENATAL VITAMINS W/ FOLIC ACID TABLET (FP) PO SCH (09:47)
[2022-06-23] MEDS: ALBUTEROL SO4 2.5/IPRATROPIUM 0.5 INH SOL 3 ML VIAL.NEB. NEB PRN ×2 (12:05→21:51)
[2022-06-23] MEDS: MELATONIN 5 MG TABLETS PO PRN (22:00)
[2022-06-23] MEDS: THIAMINE HCL 100 MG TABLET (FP) PO SCH (22:00)
[2022-06-24] MEDS: ALBUTEROL SO4 HFA INHALER IH PRN ×2 (05:46→09:29)
[2022-06-24] MEDS: methaDONE 80 MG, methaDONE 20 MG PO SCH (05:46)
[2022-06-24] MEDS: PRENATAL VITAMINS W/ FOLIC ACID TABLET (FP) PO SCH (10:43)
[2022-06-24] MEDS: BACITRACIN 15 GM TUBE TOPICAL OINTMENT TP SCH ×2 (10:44→21:29)
[2022-06-24] MEDS: CLOTRIMAZOLE/BETAMET DIPROP TOPICAL CREAM 45 GM TUBE TP SCH ×2 (10:44→21:29)
[2022-06-24] MEDS: guaiFENesin 600 MG TABLET.ER (FP) PO SCH ×2 (10:45→21:28)
[2022-06-24] MEDS: LISINOPRIL 10 MG TABLET PO SCH (10:45)
[2022-06-24] MEDS: MELATONIN 5 MG TABLETS PO PRN (21:28)
[2022-06-24] MEDS: THIAMINE HCL 100 MG TABLET (FP) PO SCH (21:28)
[2022-06-25] MEDS: ALBUTEROL SO4 2.5/IPRATROPIUM 0.5 INH SOL 3 ML VIAL.NEB. NEB PRN (02:30)
[2022-06-25] MEDS: methaDONE 80 MG, methaDONE 20 MG PO SCH (05:44)
[2022-06-25] MEDS: PRENATAL VITAMINS W/ FOLIC ACID TABLET (FP) PO SCH (09:44)
[2022-06-25] MEDS: guaiFENesin 600 MG TABLET.ER (FP) PO SCH ×2 (09:44→21:31)
[2022-06-25] MEDS: LISINOPRIL 10 MG TABLET PO SCH (09:44)
[2022-06-25] MEDS ORDERED: PENICILLIN G BENZATHINE 2,400,000 UNIT/4 ML PFS IM ONE (10:00)
[2022-06-25] MEDS: CLOTRIMAZOLE/BETAMET DIPROP TOPICAL CREAM 45 GM TUBE TP SCH ×2 (10:34→21:31)
[2022-06-25] MEDS: BACITRACIN 15 GM TUBE TOPICAL OINTMENT TP SCH ×2 (10:34→21:31)
[2022-06-25] MEDS: ALBUTEROL SO4 HFA INHALER IH PRN (13:30)
[2022-06-25] MEDS: MELATONIN 5 MG TABLETS PO PRN (21:30)
[2022-06-25] MEDS: THIAMINE HCL 100 MG TABLET (FP) PO SCH (21:30)
[2022-06-26] MEDS: ALBUTEROL SO4 2.5/IPRATROPIUM 0.5 INH SOL 3 ML VIAL.NEB. NEB PRN ×2 (05:35→14:35)
[2022-06-26] MEDS ORDERED: methaDONE HCL 10 MG TABLET PO SCH (06:00)
[2022-06-26] MEDS: methaDONE 80 MG, methaDONE 20 MG PO SCH (06:43)
[2022-06-26] MEDS: PRENATAL VITAMINS W/ FOLIC ACID TABLET (FP) PO SCH (09:53)
[2022-06-26] MEDS: CLOTRIMAZOLE/BETAMET DIPROP TOPICAL CREAM 45 GM TUBE TP SCH ×2 (09:53→21:17)
[2022-06-26] MEDS: BACITRACIN 15 GM TUBE TOPICAL OINTMENT TP SCH ×2 (09:53→21:17)
[2022-06-26] MEDS: LISINOPRIL 10 MG TABLET PO SCH (09:53)
[2022-06-26] MEDS: guaiFENesin 600 MG TABLET.ER (FP) PO SCH ×2 (09:53→21:17)
[2022-06-26] MEDS: MELATONIN 5 MG TABLETS PO PRN (21:17)
[2022-06-26] MEDS: THIAMINE HCL 100 MG TABLET (FP) PO SCH (21:17)
[2022-06-27] MEDS: ALBUTEROL SO4 2.5/IPRATROPIUM 0.5 INH SOL 3 ML VIAL.NEB. NEB PRN ×3 (04:24→23:31)
[2022-06-27] MEDS: methaDONE 80 MG, methaDONE 20 MG PO SCH (06:01)
[2022-06-27] MEDS: guaiFENesin 600 MG TABLET.ER (FP) PO SCH ×2 (10:05→21:21)
[2022-06-27] MEDS: PRENATAL VITAMINS W/ FOLIC ACID TABLET (FP) PO SCH (10:05)
[2022-06-27] MEDS: CLOTRIMAZOLE/BETAMET DIPROP TOPICAL CREAM 45 GM TUBE TP SCH ×2 (10:05→21:23)
[2022-06-27] MEDS: LISINOPRIL 10 MG TABLET PO SCH (10:05)
[2022-06-27] MEDS: BACITRACIN 15 GM TUBE TOPICAL OINTMENT TP SCH ×2 (10:06→21:23)
[2022-06-27] MEDS: MELATONIN 5 MG TABLETS PO PRN (21:21)
[2022-06-27] MEDS: THIAMINE HCL 100 MG TABLET (FP) PO SCH (21:21)
[2022-06-27] MEDS: IBUPROFEN 400 MG TABLET (FP) PO PRN (21:22)
[2022-06-27] MEDS: ACETAMINOPHEN 325 MG TABLET (FP) PO PRN (23:30)
[2022-06-28] MEDS: guaiFENesin 200 MG/10 ML 10 ML UNIT-DOSE CUPS PO PRN ×2 (01:39→21:26)
[2022-06-28] MEDS: methaDONE 80 MG, methaDONE 20 MG PO SCH (06:24)
[2022-06-28] MEDS: FLUTICASONE/SALMETEROL 100 MCG/50 MCG DISKUS IH SCH ×3 (09:51→21:24)
[2022-06-28] MEDS: CLOTRIMAZOLE/BETAMET DIPROP TOPICAL CREAM 45 GM TUBE TP SCH ×2 (09:51→21:45)
[2022-06-28] MEDS: PRENATAL VITAMINS W/ FOLIC ACID TABLET (FP) PO SCH (09:51)
[2022-06-28] MEDS: BACITRACIN 15 GM TUBE TOPICAL OINTMENT TP SCH ×2 (09:51→21:45)
[2022-06-28] MEDS: LISINOPRIL 10 MG TABLET PO SCH (09:52)
[2022-06-28] MEDS: guaiFENesin 600 MG TABLET.ER (FP) PO SCH ×2 (09:52→21:26)
[2022-06-28] MEDS: THIAMINE HCL 100 MG TABLET (FP) PO SCH (21:26)
[2022-06-29] MEDS: methaDONE 80 MG, methaDONE 20 MG PO SCH (06:02)
[2022-06-29] MEDS: PRENATAL VITAMINS W/ FOLIC ACID TABLET (FP) PO SCH (10:14)
[2022-06-29] MEDS: BACITRACIN 15 GM TUBE TOPICAL OINTMENT TP SCH ×2 (10:15→21:22)
[2022-06-29] MEDS: LISINOPRIL 10 MG TABLET PO SCH (10:15)
[2022-06-29] MEDS: FLUTICASONE/SALMETEROL 100 MCG/50 MCG DISKUS IH SCH ×2 (10:17→21:22)
[2022-06-29] MEDS: guaiFENesin 600 MG TABLET.ER (FP) PO SCH ×2 (10:18→21:21)
[2022-06-29] MEDS: CLOTRIMAZOLE/BETAMET DIPROP TOPICAL CREAM 45 GM TUBE TP SCH ×2 (10:18→21:23)
[2022-06-29] MEDS: ALBUTEROL SO4 2.5/IPRATROPIUM 0.5 INH SOL 3 ML VIAL.NEB. NEB PRN (12:11)
[2022-06-29] MEDS: MELATONIN 5 MG TABLETS PO PRN (21:21)
[2022-06-29] MEDS: THIAMINE HCL 100 MG TABLET (FP) PO SCH (21:21)
[2022-06-30] MEDS: ALBUTEROL SO4 HFA INHALER IH PRN ×2 (05:20→09:07)
[2022-06-30] MEDS: methaDONE 80 MG, methaDONE 20 MG PO SCH (05:57)
[2022-06-30] MEDS: FLUTICASONE/SALMETEROL 100 MCG/50 MCG DISKUS IH SCH ×2 (09:06→21:25)
[2022-06-30] MEDS: ALBUTEROL SO4 2.5/IPRATROPIUM 0.5 INH SOL 3 ML VIAL.NEB. NEB PRN (09:09)
[2022-06-30] MEDS: LISINOPRIL 10 MG TABLET PO SCH (09:46)
[2022-06-30] MEDS: guaiFENesin 600 MG TABLET.ER (FP) PO SCH ×2 (09:46→21:25)
[2022-06-30] MEDS: PRENATAL VITAMINS W/ FOLIC ACID TABLET (FP) PO SCH (09:46)
[2022-06-30] MEDS: CLOTRIMAZOLE/BETAMET DIPROP TOPICAL CREAM 45 GM TUBE TP SCH ×2 (09:47→21:26)
[2022-06-30] MEDS: BACITRACIN 15 GM TUBE TOPICAL OINTMENT TP SCH ×2 (09:47→21:26)
[2022-06-30] MEDS: THIAMINE HCL 100 MG TABLET (FP) PO SCH (21:25)
[2022-06-30] MEDS: MELATONIN 5 MG TABLETS PO PRN (21:25)
[2022-07-01] MEDS: ALBUTEROL SO4 2.5/IPRATROPIUM 0.5 INH SOL 3 ML VIAL.NEB. NEB PRN ×2 (01:50→06:52)
[2022-07-01] MEDS: methaDONE 80 MG, methaDONE 20 MG PO SCH (06:33)
[2022-07-01] MEDS: ALBUTEROL SO4 HFA INHALER IH PRN ×2 (06:36→21:45)
[2022-07-01] MEDS: FLUTICASONE/SALMETEROL 100 MCG/50 MCG DISKUS IH SCH ×2 (09:28→21:45)
[2022-07-01] MEDS: guaiFENesin 600 MG TABLET.ER (FP) PO SCH ×2 (09:29→21:46)
[2022-07-01] MEDS: LISINOPRIL 10 MG TABLET PO SCH (09:29)
[2022-07-01] MEDS: PRENATAL VITAMINS W/ FOLIC ACID TABLET (FP) PO SCH (09:29)
[2022-07-01] MEDS: BACITRACIN 15 GM TUBE TOPICAL OINTMENT TP SCH ×2 (09:29→21:46)
[2022-07-01] MEDS: CLOTRIMAZOLE/BETAMET DIPROP TOPICAL CREAM 45 GM TUBE TP SCH ×2 (09:34→21:46)
[2022-07-01] MEDS: THIAMINE HCL 100 MG TABLET (FP) PO SCH (21:46)
[2022-07-02] MEDS: ALBUTEROL SO4 2.5/IPRATROPIUM 0.5 INH SOL 3 ML VIAL.NEB. NEB PRN ×3 (04:24→22:12)
[2022-07-02] MEDS: methaDONE 80 MG, methaDONE 20 MG PO SCH (06:03)
[2022-07-02] MEDS: guaiFENesin 600 MG TABLET.ER (FP) PO SCH ×2 (09:39→21:53)
[2022-07-02] MEDS: FLUTICASONE/SALMETEROL 100 MCG/50 MCG DISKUS IH SCH ×2 (09:39→21:54)
[2022-07-02] MEDS: LISINOPRIL 10 MG TABLET PO SCH (09:39)
[2022-07-02] MEDS: PRENATAL VITAMINS W/ FOLIC ACID TABLET (FP) PO SCH (09:39)
[2022-07-02] MEDS: BACITRACIN 15 GM TUBE TOPICAL OINTMENT TP SCH ×2 (09:40→22:03)
[2022-07-02] MEDS: CLOTRIMAZOLE/BETAMET DIPROP TOPICAL CREAM 45 GM TUBE TP SCH ×2 (09:41→22:03)
[2022-07-02] MEDS ORDERED: PENICILLIN G BENZATHINE 2,400,000 UNIT/4 ML PFS IM ONE (10:00)
[2022-07-02] MEDS: ACETAMINOPHEN 325 MG TABLET (FP) PO PRN (14:54)
[2022-07-02] MEDS: ALBUTEROL SO4 HFA INHALER IH PRN (17:35)
[2022-07-02] MEDS: hydrOXYzine PAMOATE 25 MG CAPSULE (FP) PO PRN (20:40)
[2022-07-02] MEDS: THIAMINE HCL 100 MG TABLET (FP) PO SCH (21:53)
[2022-07-02] MEDS: MELATONIN 5 MG TABLETS PO PRN (21:53)
[2022-07-03] MEDS: ALBUTEROL SO4 2.5/IPRATROPIUM 0.5 INH SOL 3 ML VIAL.NEB. NEB PRN (04:08)
[2022-07-03] MEDS: methaDONE 80 MG, methaDONE 20 MG PO SCH (05:57)
[2022-07-03] MEDS: LISINOPRIL 10 MG TABLET PO SCH (09:41)
[2022-07-03] MEDS: guaiFENesin 600 MG TABLET.ER (FP) PO SCH ×2 (09:41→21:36)
[2022-07-03] MEDS: FLUTICASONE/SALMETEROL 100 MCG/50 MCG DISKUS IH SCH ×2 (09:41→21:36)
[2022-07-03] MEDS: PRENATAL VITAMINS W/ FOLIC ACID TABLET (FP) PO SCH (09:41)
[2022-07-03] MEDS: BACITRACIN 15 GM TUBE TOPICAL OINTMENT TP SCH ×2 (09:42→21:37)
[2022-07-03] MEDS: CLOTRIMAZOLE/BETAMET DIPROP TOPICAL CREAM 45 GM TUBE TP SCH ×2 (09:42→21:37)
[2022-07-03] MEDS: ALBUTEROL SO4 HFA INHALER IH PRN (15:56)
[2022-07-03] MEDS: MELATONIN 5 MG TABLETS PO PRN (21:36)
[2022-07-03] MEDS: THIAMINE HCL 100 MG TABLET (FP) PO SCH (21:36)
[2022-07-04] MEDS: methaDONE 80 MG, methaDONE 20 MG PO SCH (06:05)
[2022-07-04] MEDS: ALBUTEROL SO4 HFA INHALER IH PRN ×2 (06:05→09:18)
[2022-07-04] MEDS: FLUTICASONE/SALMETEROL 100 MCG/50 MCG DISKUS IH SCH ×2 (09:17→21:28)
[2022-07-04] MEDS: PRENATAL VITAMINS W/ FOLIC ACID TABLET (FP) PO SCH (09:17)
[2022-07-04] MEDS: guaiFENesin 600 MG TABLET.ER (FP) PO SCH ×2 (09:17→21:28)
[2022-07-04] MEDS: LISINOPRIL 10 MG TABLET PO SCH (09:17)
[2022-07-04] MEDS: CLOTRIMAZOLE/BETAMET DIPROP TOPICAL CREAM 45 GM TUBE TP SCH ×2 (11:08→21:29)
[2022-07-04] MEDS: ALBUTEROL SO4 2.5/IPRATROPIUM 0.5 INH SOL 3 ML VIAL.NEB. NEB PRN (11:08)
[2022-07-04] MEDS: BACITRACIN 15 GM TUBE TOPICAL OINTMENT TP SCH ×2 (11:08→21:28)
[2022-07-04] MEDS: MELATONIN 5 MG TABLETS PO PRN (21:27)
[2022-07-04] MEDS: THIAMINE HCL 100 MG TABLET (FP) PO SCH (21:28)
[2022-07-05] MEDS: methaDONE 80 MG, methaDONE 20 MG PO SCH (05:57)
[2022-07-05] MEDS: ALBUTEROL SO4 HFA INHALER IH PRN ×2 (05:59→09:11)
[2022-07-05] MEDS: ALBUTEROL SO4 2.5/IPRATROPIUM 0.5 INH SOL 3 ML VIAL.NEB. NEB PRN ×2 (09:09→18:12)
[2022-07-05] MEDS: FLUTICASONE/SALMETEROL 100 MCG/50 MCG DISKUS IH SCH ×2 (09:11→21:17)
[2022-07-05] MEDS: BACITRACIN 15 GM TUBE TOPICAL OINTMENT TP SCH ×2 (10:07→21:18)
[2022-07-05] MEDS: guaiFENesin 600 MG TABLET.ER (FP) PO SCH ×2 (10:07→21:18)
[2022-07-05] MEDS: LISINOPRIL 10 MG TABLET PO SCH (10:07)
[2022-07-05] MEDS: PRENATAL VITAMINS W/ FOLIC ACID TABLET (FP) PO SCH (10:07)
[2022-07-05] MEDS: CLOTRIMAZOLE/BETAMET DIPROP TOPICAL CREAM 45 GM TUBE TP SCH ×2 (10:07→21:18)
[2022-07-05] MEDS: THIAMINE HCL 100 MG TABLET (FP) PO SCH (21:17)
[2022-07-05] MEDS: MELATONIN 5 MG TABLETS PO PRN (21:17)
[2022-07-06] MEDS: methaDONE 80 MG, methaDONE 20 MG PO SCH (06:18)
[2022-07-06] MEDS: ALBUTEROL SO4 HFA INHALER IH PRN ×3 (06:19→11:39)
[2022-07-06 06:58] VITALS: TEMP 97.7
[2022-07-06] MEDS: PRENATAL VITAMINS W/ FOLIC ACID TABLET (FP) PO SCH (10:03)
[2022-07-06] MEDS: FLUTICASONE/SALMETEROL 100 MCG/50 MCG DISKUS IH SCH ×2 (10:03→23:48)
[2022-07-06] MEDS: guaiFENesin 600 MG TABLET.ER (FP) PO SCH ×2 (10:04→23:49)
[2022-07-06] MEDS: LISINOPRIL 10 MG TABLET PO SCH (10:04)
[2022-07-06] MEDS: BACITRACIN 15 GM TUBE TOPICAL OINTMENT TP SCH ×2 (10:05→23:48)
[2022-07-06] MEDS: CLOTRIMAZOLE/BETAMET DIPROP TOPICAL CREAM 45 GM TUBE TP SCH ×2 (10:05→23:48)
[2022-07-06] MEDS: IBUPROFEN 400 MG TABLET (FP) PO PRN (10:06)
[2022-07-06] MEDS: ALBUTEROL SO4 2.5/IPRATROPIUM 0.5 INH SOL 3 ML VIAL.NEB. NEB PRN ×2 (10:10→11:39)
[2022-07-06 12:16] VITALS: BP 117/79; PULSE 118; RESP 20
[2022-07-06] MEDS: THIAMINE HCL 100 MG TABLET (FP) PO SCH (23:50)
== END 2022-07-07 00:45 | disposition short-term general hospital (02) | DRG 772 ==
LOC: YASAS 17:40 → Y3W 06-18 03:06
PROVIDERS: ADMIT Allergy & Immunology; ATTEND Allergy & Immunology
PROC: HZ42ZZZ Group Counseling for Substance Abuse Treatment, Cognitive-Behavioral (ICD-10-PCS; principal; 2022-06-18)
DX: F11.20 Opioid dependence, uncomplicated (principal); F14.20 Cocaine dependence, uncomplicated; F19.24 Other psychoactive substance dependence with psychoactive substance-induced mood disorder; F20.9 Schizophrenia, unspecified; I10 Essential (primary) hypertension; J45.901 Unspecified asthma with (acute) exacerbation; L97.818 Non-pressure chronic ulcer of other part of right lower leg with other specified severity; B35.3 Tinea pedis; R63.4 Abnormal weight loss; Z68.21 Body mass index [BMI] 21.0-21.9, adult; Z86.19 Personal history of other infectious and parasitic diseases; Z99.89 Dependence on other enabling machines and devices
CPT/HCPCS: 36415; 71046-TC-FY; 81003; 86593; 86780; 87811; 94640; C9803-CS; U0003; U0005

== ENCOUNTER 2022-06-17 22:59 | Emergency (ER) | payer BC ==
[2022-06-17 23:25] VITALS: BP 102/73; PULSE 77; RESP 16; TEMP 97.7; BMI 22.8
[2022-06-17] MEDS ORDERED: predniSONE 20 MG TABLET (UD) PO ONE (23:44)
[2022-06-17] MEDS ORDERED: ALBUTEROL SO4 2.5/IPRATROPIUM 0.5 INH SOL 3 ML VIAL.NEB. NEB SCH (23:45)
[2022-06-17] MEDS ORDERED: ALBUTEROL SO4 2.5/IPRATROPIUM 0.5 INH SOL 3 ML VIAL.NEB. NEB ONE (23:49)
[2022-06-17] MEDS ORDERED: predniSONE 20 MG TABLET (UD) ONE (23:50)
[2022-06-18 01:30] LABS: BASO % 0.6 % (0-2.0); EOS % 14.1 % (0-4.5); HEMATOCRIT 36.2 % (35.4-49); HEMOGLOBIN 12.3 GM/dL (11.7-16.9); LYMPH % 37.6 % (8-40); MCH 31.1 pg (25.7-33.7); MCHC 33.9 g/dl (32.0-35.9); MEAN CELL VOLUME 91.9 fl (80-96); MEAN PLT VOLUME 7.8 fl (7.5-11.1); MONO % 5.9 % (3.8-10.2); NEUT % 41.8 % (42.8-82.8); PLATELET COUNT 291 10^3/uL (134-434); RBC 3.94 M/mm3 (4.00-5.60); RDW 15.5 % (11.9-15.9); WHITE BLOOD COUNT 7.7 K/mm3 (4.0-10.0)
[2022-06-18 01:32] LABS: VENOUS BASE EXCESS 5.9 mmol/L (-2-2); VENOUS O2 SATURATION 73.1 % (70-80); VENOUS PCO2 49.8 mmHg (38-52); VENOUS PH 7.419 (7.310-7.410)
[2022-06-18 01:51] LABS: ALBUMIN 2.7 g/dl (3.4-5.0); BLOOD UREA NITROGEN 15.7 mg/dL (7-18); CALCIUM 8.5 mg/dL (8.5-10.1)
[2022-06-18 01:53] LABS: CREATININE 0.8 mg/dL (0.55-1.3)
[2022-06-18 01:55] LABS: BILIRUBIN,TOTAL 0.2 mg/dL (0.2-1); TOT PROT 6.2 g/dl (6.4-8.2)
== END 2022-06-18 02:46 | disposition short-term general hospital (02) ==
LOC: JER 22:59
PROC: 3E0F7GC Introduction of Other Therapeutic Substance into Respiratory Tract, Via Natural or Artificial Opening (ICD-10-PCS; principal; 2022-06-17)
DX: J45.901 Unspecified asthma with (acute) exacerbation (principal)
CPT/HCPCS: 36415; 71046-TC-FY; 80053; 82803; 84484; 85025; 93005; 93010; 99285-25

== ENCOUNTER 2022-07-06 12:32 | Inpatient (IN) | payer BC ==
[2022-07-06 12:57] LABS: BASO % 1.1 % (0-2.0); EOS % 10.1 % (0-4.5); HEMATOCRIT 38.5 % (35.4-49); HEMOGLOBIN 12.7 GM/dL (11.7-16.9); LYMPH % 24.7 % (8-40); MCH 30.4 pg (25.7-33.7); MCHC 33.1 g/dl (32.0-35.9); MEAN CELL VOLUME 91.8 fl (80-96); MEAN PLT VOLUME 8.1 fl (7.5-11.1); MONO % 8.1 % (3.8-10.2); PLATELET COUNT 309 10^3/uL (134-434); RBC 4.19 M/mm3 (4.00-5.60); RDW 15.7 % (11.9-15.9); WHITE BLOOD COUNT 10.8 K/mm3 (4.0-10.0)
[2022-07-06 13:05] LABS: INR 1.05 (0.83-1.09); PROTHROMBIN TIME (PATIENT) 12.1 SEC (9.7-13.0); VENOUS BASE EXCESS 1.6 mmol/L (-2-2); VENOUS O2 SATURATION 95.4 % (70-80); VENOUS PCO2 50.4 mmHg (38-52); VENOUS PH 7.361 (7.310-7.410)
[2022-07-06 13:08] LABS: ACTIVATED PTT 33.8 SECONDS (25.2-36.5)
[2022-07-06] MEDS ORDERED: SODIUM CHLORIDE 0.9% 500 ML INFUS.BAG IV ONE (13:10)
[2022-07-06] MEDS: ALBUTEROL SO4 2.5/IPRATROPIUM 0.5 INH SOL 3 ML VIAL.NEB. NEB SCH (13:12)
[2022-07-06 13:14] LABS: ARTERIAL BLD GAS O2 SATURATION 94.9 % (95-98); ARTERIAL BLOOD GAS BASE EXCESS 0 mmol/L (-2-2); ARTERIAL BLOOD GAS PO2 78.1 mmHg (80-100); ARTERIAL BLOOD GAS pH 7.349 (7.350-7.450)
[2022-07-06 13:25] LABS: CALCIUM 9.1 mg/dL (8.5-10.1)
[2022-07-06 13:26] LABS: ALBUMIN 3.1 g/dl (3.4-5.0); BLOOD UREA NITROGEN 20.3 mg/dL (7-18); MAGNESIUM 2.7 mg/dL (1.8-2.4)
[2022-07-06 13:29] LABS: CREATININE 0.9 mg/dL (0.55-1.3)
[2022-07-06 13:31] LABS: BILIRUBIN,TOTAL 0.2 mg/dL (0.2-1)
[2022-07-06 13:32] LABS: TOT PROT 7.1 g/dl (6.4-8.2)
[2022-07-06] MEDS ORDERED: ALBUTEROL SO4 2.5/IPRATROPIUM 0.5 INH SOL 3 ML VIAL.NEB. NEB PRN (16:09)
[2022-07-06] MEDS ORDERED: methylPREDNISolone NA SUCC 40 MG/1 ML VIAL ONE (17:30)
[2022-07-06] MEDS: methylPREDNISolone NA SUCC 40 MG/1 ML VIAL IVPUSH SCH ×2 (17:33→22:10)
[2022-07-06 18:10] LABS: N-TERMINAL BNP 45.5 pg/ml (5-125)
[2022-07-06 19:03] VITALS: BMI 23.0
[2022-07-06] MEDS ORDERED: OLANZapine 2.5 MG TABLET PO SCH (22:00)
[2022-07-06] MEDS: traZODone HCL 50 MG TABLET (FP) PO SCH (22:11)
[2022-07-06] MEDS: OLANZAPINE 5 MG, OLANZAPINE 2.5 MG PO SCH (22:58)
[2022-07-07] MEDS: methylPREDNISolone NA SUCC 40 MG/1 ML VIAL IVPUSH SCH ×4 (02:02→18:18)
[2022-07-07] MEDS ORDERED: methaDONE HCL 10 MG TABLET (FOR DETOX USE ONLY) PO SCH (08:56)
[2022-07-07 09:05] LABS: BASO % 0.2 % (0-2.0); EOS % 0.1 % (0-4.5); HEMATOCRIT 35.8 % (35.4-49); HEMOGLOBIN 11.6 GM/dL (11.7-16.9); LYMPH % 8.5 % (8-40); MCH 29.8 pg (25.7-33.7); MCHC 32.4 g/dl (32.0-35.9); MEAN PLT VOLUME 8.4 fl (7.5-11.1); MONO % 1.4 % (3.8-10.2); NEUT % 89.8 % (42.8-82.8); PLATELET COUNT 288 10^3/uL (134-434); RDW 15.3 % (11.9-15.9); WHITE BLOOD COUNT 14.1 K/mm3 (4.0-10.0)
[2022-07-07] MEDS: methaDONE 40 MG, methaDONE 10 MG PO SCH (09:17)
[2022-07-07 09:27] LABS: MAGNESIUM 2.1 mg/dL (1.8-2.4)
[2022-07-07 09:31] LABS: PHOSPHOROUS 4.4 mg/dL (2.5-4.9)
[2022-07-07] MEDS ORDERED: ALBUTEROL SO4 0.083% IH SOL 2.5 MG/3 ML VIAL.NEB. NEB PRN (10:22)
[2022-07-07] MEDS: LISINOPRIL 20 MG TABLET PO SCH (10:42)
[2022-07-07] MEDS: ALBUTEROL SO4 2.5/IPRATROPIUM 0.5 INH SOL 3 ML VIAL.NEB. NEB SCH ×3 (11:25→20:59)
[2022-07-07] MEDS: BUDESONIDE/FORMETEROL FUMARATE 160/4.5 mcg INHALER IH SCH ×2 (12:00→23:06)
[2022-07-07] MEDS ORDERED: methylPREDNISolone NA SUCC 40 MG/1 ML VIAL IVPUSH SCH (18:00)
[2022-07-07] MEDS ORDERED: methaDONE 40 MG, methaDONE 10 MG PO ONE (19:00)
[2022-07-07] MEDS ORDERED: methaDONE HCL 10 MG TABLET (FOR DETOX USE ONLY) PO ONE (19:00)
[2022-07-07] MEDS: OLANZAPINE 5 MG, OLANZAPINE 2.5 MG PO SCH ×2 (23:05→23:11)
[2022-07-07] MEDS: MONTELUKAST NA 10 MG TABLET PO SCH (23:06)
[2022-07-07] MEDS: traZODone HCL 50 MG TABLET (FP) PO SCH (23:06)
[2022-07-08] MEDS: methylPREDNISolone NA SUCC 40 MG/1 ML VIAL IVPUSH SCH ×2 (01:39→09:27)
[2022-07-08] MEDS: methaDONE 40 MG, methaDONE 10 MG PO SCH (06:32)
[2022-07-08] MEDS: ALBUTEROL SO4 2.5/IPRATROPIUM 0.5 INH SOL 3 ML VIAL.NEB. NEB SCH (08:20)
[2022-07-08] MEDS: BUDESONIDE/FORMETEROL FUMARATE 160/4.5 mcg INHALER IH SCH ×2 (09:27→22:40)
[2022-07-08] MEDS: LISINOPRIL 20 MG TABLET PO SCH (09:27)
[2022-07-08] MEDS ORDERED: methaDONE HCL 10 MG TABLET (FOR DETOX USE ONLY) PO ONE (09:29)
[2022-07-08 09:41] LABS: BASO % 0.5 % (0-2.0); EOS % 0.1 % (0-4.5); HEMATOCRIT 38.7 % (35.4-49); HEMOGLOBIN 12.6 GM/dL (11.7-16.9); MCH 30.3 pg (25.7-33.7); MCHC 32.7 g/dl (32.0-35.9); MEAN CELL VOLUME 92.6 fl (80-96); MEAN PLT VOLUME 9.4 fl (7.5-11.1); MONO % 2.7 % (3.8-10.2); NEUT % 87.7 % (42.8-82.8); PLATELET COUNT 305 10^3/uL (134-434); RBC 4.17 M/mm3 (4.00-5.60); RDW 15.2 % (11.9-15.9); WHITE BLOOD COUNT 12.4 K/mm3 (4.0-10.0)
[2022-07-08 10:07] LABS: BLOOD UREA NITROGEN 19.7 mg/dL (7-18)
[2022-07-08 10:09] LABS: CALCIUM 9.3 mg/dL (8.5-10.1); CREATININE 0.9 mg/dL (0.55-1.3)
[2022-07-08 10:11] LABS: BILIRUBIN,TOTAL 0.2 mg/dL (0.2-1); TOT PROT 7.1 g/dl (6.4-8.2)
[2022-07-08] MEDS ORDERED: methaDONE 40 MG, methaDONE 10 MG PO ONE (10:15)
[2022-07-08] MEDS: predniSONE 20 MG TABLET (UD) PO SCH ×2 (11:13→22:37)
[2022-07-08] MEDS ORDERED: predniSONE 20 MG TABLET (UD) PO SCH (22:00)
[2022-07-08] MEDS: MONTELUKAST NA 10 MG TABLET PO SCH (22:37)
[2022-07-08] MEDS: traZODone HCL 50 MG TABLET (FP) PO SCH (22:37)
[2022-07-08] MEDS: OLANZAPINE 5 MG, OLANZAPINE 2.5 MG PO SCH ×2 (22:37→22:41)
[2022-07-09] MEDS ORDERED: methaDONE HCL 40 MG DISPERSABLE TABLET PO SCH (06:00)
[2022-07-09] MEDS: methaDONE 80 MG, methaDONE 20 MG PO SCH (07:15)
[2022-07-09] MEDS: ALBUTEROL SO4 2.5/IPRATROPIUM 0.5 INH SOL 3 ML VIAL.NEB. NEB PRN ×2 (07:43→19:53)
[2022-07-09] MEDS: predniSONE 20 MG TABLET (UD) PO SCH ×2 (09:19→22:09)
[2022-07-09] MEDS: ENOXAPARIN NA (PORCINE) 40 MG/0.4 ML DISP.SYRIN SQ SCH (09:19)
[2022-07-09] MEDS: LISINOPRIL 20 MG TABLET PO SCH (09:19)
[2022-07-09] MEDS: BUDESONIDE/FORMETEROL FUMARATE 160/4.5 mcg INHALER IH SCH ×2 (09:23→22:09)
[2022-07-09] MEDS: MONTELUKAST NA 10 MG TABLET PO SCH (22:09)
[2022-07-09] MEDS: traZODone HCL 50 MG TABLET (FP) PO SCH (22:09)
[2022-07-09] MEDS: OLANZAPINE 5 MG, OLANZAPINE 2.5 MG PO SCH (22:10)
[2022-07-10] MEDS: methaDONE 80 MG, methaDONE 20 MG PO SCH ×2 (06:41→07:04)
[2022-07-10] MEDS: LISINOPRIL 20 MG TABLET PO SCH (10:08)
[2022-07-10] MEDS: predniSONE 20 MG TABLET (UD) PO SCH ×2 (10:08→22:50)
[2022-07-10] MEDS: BUDESONIDE/FORMETEROL FUMARATE 160/4.5 mcg INHALER IH SCH ×2 (10:08→22:51)
[2022-07-10] MEDS: ENOXAPARIN NA (PORCINE) 40 MG/0.4 ML DISP.SYRIN SQ SCH (10:08)
[2022-07-10] MEDS: ALBUTEROL SO4 2.5/IPRATROPIUM 0.5 INH SOL 3 ML VIAL.NEB. NEB PRN (20:02)
[2022-07-10] MEDS: MONTELUKAST NA 10 MG TABLET PO SCH (22:50)
[2022-07-10] MEDS: traZODone HCL 50 MG TABLET (FP) PO SCH (22:50)
[2022-07-10] MEDS: OLANZAPINE 5 MG, OLANZAPINE 2.5 MG PO SCH ×2 (22:50→23:28)
[2022-07-11] MEDS: methaDONE 80 MG, methaDONE 20 MG PO SCH (06:16)
[2022-07-11] MEDS: ENOXAPARIN NA (PORCINE) 40 MG/0.4 ML DISP.SYRIN SQ SCH (09:19)
[2022-07-11] MEDS: predniSONE 20 MG TABLET (UD) PO SCH (09:19)
[2022-07-11] MEDS: BUDESONIDE/FORMETEROL FUMARATE 160/4.5 mcg INHALER IH SCH (09:20)
[2022-07-11] MEDS: LISINOPRIL 20 MG TABLET PO SCH (09:20)
[2022-07-11 13:35] VITALS: BP 130/78; PULSE 88; RESP 20; TEMP 98.4
== END 2022-07-11 15:25 | disposition other institution (70) | DRG 141 ==
LOC: JER 12:32 → JERBED 13:42 → J7W 18:46
PROVIDERS: ADMIT Internal Medicine; ATTEND Internal Medicine
DX: J45.51 Severe persistent asthma with (acute) exacerbation (principal); J44.1 Chronic obstructive pulmonary disease with (acute) exacerbation; I10 Essential (primary) hypertension; F20.9 Schizophrenia, unspecified; E78.5 Hyperlipidemia, unspecified; F17.290 Nicotine dependence, other tobacco product, uncomplicated; F39 Unspecified mood [affective] disorder; R05.9 Cough, unspecified; R06.02 Shortness of breath; R07.89 Other chest pain; Z59.00 Homelessness unspecified
CPT/HCPCS: 0241U-QW; 36415; 36600; 71045-TC-FY; 76604; 80053; 80061; 82803; 82962; 83036; 83735; 83880; 84100; 84443; 84484; 85025; 85027; 85610; 85730; 93005; 93010; 93308; 93970; 94640; 99285-25

== ENCOUNTER 2022-07-11 15:33 | Inpatient (IN) | payer BC ==
[2022-07-11 18:31] VITALS: BMI 23.1
[2022-07-11] MEDS ORDERED: MAGNESIUM HYDROX 2400MG/30ML ORAL SUSPENSION 30 ML CUP PO PRN (18:34)
[2022-07-11] MEDS ORDERED: MAGNESIUM CITRATE 300 ML BOTTLE PO PRN (18:34)
[2022-07-11] MEDS ORDERED: P-EPHED 60MG/TRIPROLIDI 2.5MG TABLET PO PRN (18:34)
[2022-07-11] MEDS ORDERED: IBUPROFEN 400 MG TABLET (FP) PO PRN (18:34)
[2022-07-11] MEDS ORDERED: guaiFENesin 200 MG/10 ML 10 ML UNIT-DOSE CUPS PO PRN (18:34)
[2022-07-11] MEDS ORDERED: ACETAMINOPHEN 325 MG TABLET (FP) PO PRN (18:34)
[2022-07-11] MEDS ORDERED: BENZOCAINE/MENTHOL (CHLORASEPTIC ) LOZENGE MM PRN (18:34)
[2022-07-11] MEDS ORDERED: MAG HYDROX/AL HYDROX/SIMETH 30 ML UNIT-DOSE CUP PO PRN (18:34)
[2022-07-11] MEDS ORDERED: LOPERAMIDE HCL 2 MG CAPSULE PO PRN (18:34)
[2022-07-11] MEDS: THIAMINE HCL 100 MG TABLET (FP) PO SCH (21:43)
[2022-07-11] MEDS: MELATONIN 5 MG TABLETS PO PRN (21:43)
[2022-07-11] MEDS: predniSONE 20 MG TABLET (UD) PO SCH (21:44)
[2022-07-11] MEDS: MONTELUKAST NA 10 MG TABLET PO SCH (21:44)
[2022-07-11] MEDS: BUDESONIDE/FORMETEROL FUMARATE 160/4.5 mcg INHALER IH SCH (21:46)
[2022-07-12] MEDS: ALBUTEROL SO4 HFA INHALER IH PRN (06:59)
[2022-07-12] MEDS: ALBUTEROL SO4 2.5/IPRATROPIUM 0.5 INH SOL 3 ML VIAL.NEB. NEB PRN (07:03)
[2022-07-12] MEDS ORDERED: methaDONE HCL 10 MG TABLET PO SCH (09:00)
[2022-07-12] MEDS: PRENATAL VITAMINS W/ FOLIC ACID TABLET (FP) PO SCH (09:09)
[2022-07-12] MEDS: methaDONE 80 MG, methaDONE 20 MG PO SCH (09:09)
[2022-07-12] MEDS: predniSONE 20 MG TABLET (UD) PO SCH ×2 (09:10→21:35)
[2022-07-12] MEDS: LISINOPRIL 20 MG TABLET PO SCH (09:11)
[2022-07-12] MEDS: BUDESONIDE/FORMETEROL FUMARATE 160/4.5 mcg INHALER IH SCH ×2 (09:11→21:34)
[2022-07-12] MEDS: traZODone HCL 50 MG TABLET (FP) PO SCH (21:34)
[2022-07-12] MEDS: MONTELUKAST NA 10 MG TABLET PO SCH (21:34)
[2022-07-12] MEDS: THIAMINE HCL 100 MG TABLET (FP) PO SCH (21:36)
[2022-07-13] MEDS: methaDONE 80 MG, methaDONE 20 MG PO SCH (05:36)
[2022-07-13] MEDS: ALBUTEROL SO4 2.5/IPRATROPIUM 0.5 INH SOL 3 ML VIAL.NEB. NEB PRN (08:36)
[2022-07-13] MEDS: LISINOPRIL 20 MG TABLET PO SCH (10:20)
[2022-07-13] MEDS: PRENATAL VITAMINS W/ FOLIC ACID TABLET (FP) PO SCH (10:20)
[2022-07-13] MEDS: predniSONE 20 MG TABLET (UD) PO SCH ×2 (10:20→21:26)
[2022-07-13] MEDS: BUDESONIDE/FORMETEROL FUMARATE 160/4.5 mcg INHALER IH SCH ×2 (10:21→21:26)
[2022-07-13] MEDS ORDERED: INSULIN SLIDING SCALE (NOVOLOG) 1 VIAL SQ ONE (13:11)
[2022-07-13] MEDS: traZODone HCL 50 MG TABLET (FP) PO SCH (21:26)
[2022-07-13] MEDS: THIAMINE HCL 100 MG TABLET (FP) PO SCH (21:26)
[2022-07-13] MEDS: MELATONIN 5 MG TABLETS PO PRN (21:26)
[2022-07-13] MEDS: MONTELUKAST NA 10 MG TABLET PO SCH (21:26)
[2022-07-14] MEDS: ALBUTEROL SO4 HFA INHALER IH PRN (06:06)
[2022-07-14] MEDS: methaDONE 80 MG, methaDONE 20 MG PO SCH (06:08)
[2022-07-14] MEDS: ALBUTEROL SO4 2.5/IPRATROPIUM 0.5 INH SOL 3 ML VIAL.NEB. NEB PRN (09:42)
[2022-07-14] MEDS: PRENATAL VITAMINS W/ FOLIC ACID TABLET (FP) PO SCH (09:59)
[2022-07-14] MEDS: LISINOPRIL 20 MG TABLET PO SCH (09:59)
[2022-07-14] MEDS: predniSONE 20 MG TABLET (UD) PO SCH ×2 (10:00→21:16)
[2022-07-14] MEDS: BUDESONIDE/FORMETEROL FUMARATE 160/4.5 mcg INHALER IH SCH ×2 (10:00→21:16)
[2022-07-14] MEDS: MONTELUKAST NA 10 MG TABLET PO SCH (21:16)
[2022-07-14] MEDS: traZODone HCL 50 MG TABLET (FP) PO SCH (21:16)
[2022-07-14] MEDS: THIAMINE HCL 100 MG TABLET (FP) PO SCH (21:16)
[2022-07-14] MEDS: MELATONIN 5 MG TABLETS PO PRN (21:16)
[2022-07-15] MEDS: methaDONE 80 MG, methaDONE 20 MG PO SCH (06:03)
[2022-07-15 06:45] VITALS: RESP 18; TEMP 96.2
[2022-07-15] MEDS: ALBUTEROL SO4 2.5/IPRATROPIUM 0.5 INH SOL 3 ML VIAL.NEB. NEB PRN (09:10)
[2022-07-15] MEDS: BUDESONIDE/FORMETEROL FUMARATE 160/4.5 mcg INHALER IH SCH (09:27)
[2022-07-15] MEDS: PRENATAL VITAMINS W/ FOLIC ACID TABLET (FP) PO SCH (09:27)
[2022-07-15] MEDS: LISINOPRIL 20 MG TABLET PO SCH (09:28)
[2022-07-15 09:29] VITALS: PULSE 114
[2022-07-15] MEDS: ALBUTEROL SO4 HFA INHALER IH PRN (09:29)
[2022-07-15 09:37] VITALS: BP 154/94
[2022-07-15] MEDS ORDERED: predniSONE 20 MG TABLET (UD) PO SCH (10:00)
[2022-07-18] MEDS ORDERED: predniSONE 10 MG TABLET (UD) PO SCH (10:00)
[2022-07-21] MEDS ORDERED: predniSONE 20 MG TABLET (UD) PO SCH (10:00)
[2022-07-24] MEDS ORDERED: predniSONE 10 MG TABLET (UD) PO SCH (10:00)
== END 2022-07-15 10:52 | disposition home or self-care (01) | DRG 772 ==
LOC: YASAS 15:33 → Y3W 18:54
PROVIDERS: ADMIT Allergy & Immunology; ATTEND Surgery
PROC: HZ42ZZZ Group Counseling for Substance Abuse Treatment, Cognitive-Behavioral (ICD-10-PCS; principal; 2022-07-11)
DX: F11.20 Opioid dependence, uncomplicated (principal); F14.20 Cocaine dependence, uncomplicated; F19.24 Other psychoactive substance dependence with psychoactive substance-induced mood disorder; F20.9 Schizophrenia, unspecified; J45.901 Unspecified asthma with (acute) exacerbation; I10 Essential (primary) hypertension; Z72.0 Tobacco use; Z99.89 Dependence on other enabling machines and devices
CPT/HCPCS: 82962; 94640; C9803-CS; U0003; U0005

== ENCOUNTER 2022-12-09 14:56 | Inpatient (IN) | payer BC ==
[2022-12-09 16:45] VITALS: BMI 22.9
[2022-12-09] MEDS ORDERED: IBUPROFEN 400 MG TABLET (FP) PO PRN (20:10)
[2022-12-09] MEDS ORDERED: MAGNESIUM HYDROX 2400MG/30ML ORAL SUSPENSION 30 ML CUP PO PRN (20:10)
[2022-12-09] MEDS ORDERED: BENZONATATE 200 MG CAPSULE PO PRN (20:10)
[2022-12-09] MEDS ORDERED: POLYETHYLENE GLYCOL (HEALTHYLAX) 3350 17 GM PACKET PO PRN (20:10)
[2022-12-09] MEDS ORDERED: NICOTINE POLACRILEX 2 MG GUM BC PRN (20:10)
[2022-12-09] MEDS ORDERED: BENZOCAINE/MENTHOL (CHLORASEPTIC ) LOZENGE MM PRN (20:10)
[2022-12-09] MEDS ORDERED: NALOXONE HCL (KLOXXADO) 8 MG SPRAY NS PRN (20:10)
[2022-12-09] MEDS ORDERED: NALOXONE HCL 0.4 MG/ML VIAL IM PRN (20:10)
[2022-12-09] MEDS ORDERED: IBUPROFEN 600 MG TABLET (FP) PO PRN (20:10)
[2022-12-09] MEDS ORDERED: guaiFENesin 600 MG TABLET.ER (FP) PO PRN (20:10)
[2022-12-09] MEDS ORDERED: ACETAMINOPHEN 325 MG TABLET (FP) PO PRN (20:10)
[2022-12-09] MEDS ORDERED: LOPERAMIDE HCL 2 MG CAPSULE PO PRN (20:10)
[2022-12-09] MEDS ORDERED: MAG HYDROX/AL HYDROX/SIMETH 30 ML UNIT-DOSE CUP PO PRN (20:10)
[2022-12-10] MEDS ORDERED: TUBERCULIN PPD 5 TU/0.1ML VIAL ID ONE ×2 (01:15→01:41)
[2022-12-10] MEDS: THIAMINE HCL 100 MG TABLET (FP) PO SCH ×2 (01:19→21:30)
[2022-12-10] MEDS: MELATONIN 5 MG TABLETS PO SCH ×2 (01:20→21:30)
[2022-12-10] MEDS: ALBUTEROL SO4 HFA INHALER IH PRN ×3 (06:36→19:17)
[2022-12-10] MEDS ORDERED: cloNIDine HCL 0.1 MG TABLET PO ONE (06:37)
[2022-12-10] MEDS ORDERED: methaDONE HCL 10 MG TABLET PO SCH (09:00)
[2022-12-10] MEDS ORDERED: ALBUTEROL SO4 2.5/IPRATROPIUM 0.5 INH SOL 3 ML VIAL.NEB. NEB PRN (09:26)
[2022-12-10] MEDS: NICOTINE 14 MG/24 HOURS TOPICAL PATCH TD SCH (10:39)
[2022-12-10] MEDS: PRENATAL VITAMINS W/ FOLIC ACID TABLET (FP) PO SCH (10:39)
[2022-12-10 11:12] LABS: HEMATOCRIT 34.7 % (35.4-49); HEMOGLOBIN 11.8 GM/dL (11.7-16.9); MCH 30.5 pg (25.7-33.7); MEAN CELL VOLUME 89.8 fl (80-96); MEAN PLT VOLUME 7.8 fl (7.5-11.1); PLATELET COUNT 437 10^3/uL (134-434); RBC 3.86 M/mm3 (4.00-5.60); RDW 15.6 % (11.9-15.9); WHITE BLOOD COUNT 5.8 K/mm3 (4.0-10.0)
[2022-12-10 11:14] LABS: CALCIUM 8.3 mg/dL (8.5-10.1)
[2022-12-10 11:15] LABS: ALBUMIN 2.4 g/dl (3.4-5.0); BLOOD UREA NITROGEN 14.2 mg/dL (7-18)
[2022-12-10 11:19] LABS: BILIRUBIN,TOTAL 0.2 mg/dL (0.2-1)
[2022-12-10 11:20] LABS: TOT PROT 6.1 g/dl (6.4-8.2)
[2022-12-10] MEDS: AMMONIUM LACTATE 12% LOTION 225 GM BOTTLE TP PRN ×2 (16:18→21:30)
[2022-12-11] MEDS: PRENATAL VITAMINS W/ FOLIC ACID TABLET (FP) PO SCH (10:16)
[2022-12-11] MEDS: LISINOPRIL 20 MG TABLET PO SCH (10:18)
[2022-12-11] MEDS: FERROUS SO4 325 MG TABLET (FP) PO SCH (10:18)
[2022-12-11] MEDS: NICOTINE 14 MG/24 HOURS TOPICAL PATCH TD SCH (10:18)
[2022-12-11] MEDS: AMMONIUM LACTATE 12% LOTION 225 GM BOTTLE TP PRN (10:20)
[2022-12-11] MEDS: ALBUTEROL SO4 HFA INHALER IH PRN (10:20)
[2022-12-11] MEDS: THIAMINE HCL 100 MG TABLET (FP) PO SCH (21:26)
[2022-12-11] MEDS: MELATONIN 5 MG TABLETS PO SCH (21:26)
[2022-12-12] MEDS: ALBUTEROL SO4 HFA INHALER IH PRN ×2 (06:00→10:27)
[2022-12-12] MEDS: cloNIDine HCL 0.1 MG TABLET PO PRN (06:39)
[2022-12-12] MEDS: LISINOPRIL 20 MG TABLET PO SCH (10:14)
[2022-12-12] MEDS: FERROUS SO4 325 MG TABLET (FP) PO SCH (10:14)
[2022-12-12] MEDS: PRENATAL VITAMINS W/ FOLIC ACID TABLET (FP) PO SCH (10:14)
[2022-12-12] MEDS: AMMONIUM LACTATE 12% LOTION 225 GM BOTTLE TP PRN (10:14)
[2022-12-12] MEDS: NICOTINE 14 MG/24 HOURS TOPICAL PATCH TD SCH (10:14)
[2022-12-12] MEDS: CYANOCOBALAMIN 1,000 MCG TABLET (FP) PO SCH (12:37)
[2022-12-12] MEDS: THIAMINE HCL 100 MG TABLET (FP) PO SCH (21:29)
[2022-12-12] MEDS: MELATONIN 5 MG TABLETS PO SCH (21:29)
[2022-12-13] MEDS: ALBUTEROL SO4 HFA INHALER IH PRN ×2 (06:09→10:08)
[2022-12-13] MEDS: cloNIDine HCL 0.1 MG TABLET PO PRN (06:38)
[2022-12-13] MEDS: FERROUS SO4 325 MG TABLET (FP) PO SCH (10:06)
[2022-12-13] MEDS: CYANOCOBALAMIN 1,000 MCG TABLET (FP) PO SCH (10:06)
[2022-12-13] MEDS: PRENATAL VITAMINS W/ FOLIC ACID TABLET (FP) PO SCH (10:07)
[2022-12-13] MEDS: NICOTINE 14 MG/24 HOURS TOPICAL PATCH TD SCH (10:07)
[2022-12-13] MEDS: LISINOPRIL 20 MG TABLET PO SCH (10:07)
[2022-12-13] MEDS: AMMONIUM LACTATE 12% LOTION 225 GM BOTTLE TP PRN (10:09)
[2022-12-13] MEDS ORDERED: COLLOIDAL OATMEAL 1 BAR EACH TP PRN ×2 (13:11→13:12)
[2022-12-13] MEDS: MELATONIN 5 MG TABLETS PO SCH (21:17)
[2022-12-13] MEDS: THIAMINE HCL 100 MG TABLET (FP) PO SCH (21:17)
[2022-12-14] MEDS: cloNIDine HCL 0.1 MG TABLET PO PRN (05:54)
[2022-12-14] MEDS: CYANOCOBALAMIN 1,000 MCG TABLET (FP) PO SCH (09:44)
[2022-12-14] MEDS: FERROUS SO4 325 MG TABLET (FP) PO SCH (09:44)
[2022-12-14] MEDS: LISINOPRIL 20 MG TABLET PO SCH (09:44)
[2022-12-14] MEDS: PRENATAL VITAMINS W/ FOLIC ACID TABLET (FP) PO SCH (09:44)
[2022-12-14] MEDS: AMMONIUM LACTATE 12% LOTION 225 GM BOTTLE TP PRN (09:45)
[2022-12-14 09:56] VITALS: BP 129/75; PULSE 81; RESP 22; TEMP 98.2
[2022-12-14] MEDS: NICOTINE 14 MG/24 HOURS TOPICAL PATCH TD SCH (10:01)
== END 2022-12-14 16:50 | disposition left against medical advice (07) | DRG 770 ==
LOC: YASAS 14:56 → Y3E 23:04 → Y3W 23:09 → Y3E 12-10 13:32 → Y3W 12-10 13:33
PROVIDERS: ADMIT Allergy & Immunology; ATTEND Psychiatry & Neurology Pain Medicine
PROC: HZ42ZZZ Group Counseling for Substance Abuse Treatment, Cognitive-Behavioral (ICD-10-PCS; principal; 2022-12-09)
DX: F11.20 Opioid dependence, uncomplicated (principal); F14.20 Cocaine dependence, uncomplicated; F12.20 Cannabis dependence, uncomplicated; F17.210 Nicotine dependence, cigarettes, uncomplicated; F20.9 Schizophrenia, unspecified; I10 Essential (primary) hypertension; D64.9 Anemia, unspecified; J45.20 Mild intermittent asthma, uncomplicated; L85.3 Xerosis cutis; Z96.641 Presence of right artificial hip joint; Z87.09 Personal history of other diseases of the respiratory system; Z86.19 Personal history of other infectious and parasitic diseases; Z99.89 Dependence on other enabling machines and devices
CPT/HCPCS: 36415; 80053; 83036; 85027; 86593; 86780; 93005; 93010; 94640; C9803-CS; U0003; U0005

== ENCOUNTER 2023-02-17 22:12 | Inpatient (IN) | payer BC, OTHER ==
[2023-02-17 22:21] VITALS: BMI 24.3
[2023-02-17] MEDS ORDERED: ALBUTEROL SO4 2.5/IPRATROPIUM 0.5 INH SOL 3 ML VIAL.NEB. NEB ONE ×2 (22:30→22:44)
[2023-02-17] MEDS ORDERED: ACETAMINOPHEN 1000 MG/100 ML BAG IVPB ONE (22:38)
[2023-02-17] MEDS ORDERED: ACETAMINOPHEN INJECTION 100 ML IVPB ONE (22:44)
[2023-02-17] MEDS ORDERED: CEFTRIAXONE 1,000 MG in DEXTROSE 5%-WATER - 50 ML IVPB ONE (23:00)
[2023-02-17] MEDS ORDERED: AZITHROMYCIN IVPB 500 MG in DEXTROSE 5%-WATER - 250 ML IVPB ONE (23:00)
[2023-02-17 23:05] LABS: BASO % 1.4 % (0-2.0); EOS % 8.7 % (0-4.5); HEMATOCRIT 33.3 % (35.4-49); HEMOGLOBIN 11.3 GM/dL (11.7-16.9); LYMPH % 28.3 % (8-40); MCHC 33.9 g/dl (32.0-35.9); MEAN CELL VOLUME 88.6 fl (80-96); MEAN PLT VOLUME 7.7 fl (7.5-11.1); NEUT % 49.6 % (42.8-82.8); PLATELET COUNT 304 10^3/uL (134-434); RBC 3.76 M/mm3 (4.00-5.60); RDW 15.5 % (11.9-15.9); WHITE BLOOD COUNT 7.4 K/mm3 (4.0-10.0)
[2023-02-17 23:11] LABS: INR 1.12 (0.83-1.09)
[2023-02-17 23:13] LABS: ACTIVATED PTT 33.8 SECONDS (25.2-36.5)
[2023-02-17] MEDS ORDERED: AZITHROMYCIN IVPB 500 MG/250 ML BAG IVPB ONE (23:24)
[2023-02-17] MEDS ORDERED: CEFTRIAXONE 1 GM/50 ML BAG ONE (23:24)
[2023-02-17 23:25] LABS: CALCIUM 8.4 mg/dL (8.5-10.1); POTASSIUM 3.8 mmol/L (3.5-5.1)
[2023-02-17 23:26] LABS: ALBUMIN 2.3 g/dl (3.4-5.0); BLOOD UREA NITROGEN 11.1 mg/dL (7-18)
[2023-02-17 23:29] LABS: CREATININE 0.8 mg/dL (0.55-1.3)
[2023-02-17 23:30] LABS: BILIRUBIN,TOTAL 0.2 mg/dL (0.2-1); TOT PROT 6.4 g/dl (6.4-8.2)
[2023-02-17 23:34] LABS: N-TERMINAL BNP 173.3 pg/ml (5-125)
[2023-02-17 23:45] LABS: VENOUS BASE EXCESS 6.7 mmol/L (-2-2); VENOUS PCO2 41.4 mmHg (38-52); VENOUS PH 7.488 (7.310-7.410)
[2023-02-18] MEDS ORDERED: methylPREDNISolone NA SUCC 125 MG/2 ML VIAL IVPUSH ONE (00:31)
[2023-02-18] MEDS ORDERED: methylPREDNISolone NA SUCC 125 MG/2 ML VIAL ONE (00:43)
[2023-02-18] MEDS ORDERED: LORazepam 1 MG TABLET PO PRN (02:21)
[2023-02-18 06:29] LABS: HEMATOCRIT 35.3 % (35.4-49); HEMOGLOBIN 11.8 GM/dL (11.7-16.9); MCH 29.9 pg (25.7-33.7); MCHC 33.3 g/dl (32.0-35.9); MEAN CELL VOLUME 89.7 fl (80-96); MEAN PLT VOLUME 8.6 fl (7.5-11.1); PLATELET COUNT 336 10^3/uL (134-434); RBC 3.94 M/mm3 (4.00-5.60); RDW 15.5 % (11.9-15.9); WHITE BLOOD COUNT 6.3 K/mm3 (4.0-10.0)
[2023-02-18 06:41] LABS: POTASSIUM 4.4 mmol/L (3.5-5.1)
[2023-02-18 06:44] LABS: CALCIUM 8.7 mg/dL (8.5-10.1)
[2023-02-18 06:45] LABS: ALBUMIN 2.4 g/dl (3.4-5.0); BLOOD UREA NITROGEN 10.1 mg/dL (7-18); MAGNESIUM 2.1 mg/dL (1.8-2.4)
[2023-02-18 06:47] LABS: CREATININE 0.7 mg/dL (0.55-1.3)
[2023-02-18 06:48] LABS: PHOSPHOROUS 2.9 mg/dL (2.5-4.9)
[2023-02-18 06:49] LABS: BILIRUBIN,TOTAL 0.3 mg/dL (0.2-1); TOT PROT 6.7 g/dl (6.4-8.2)
[2023-02-18] MEDS ORDERED: ALBUTEROL SO4 2.5/IPRATROPIUM 0.5 INH SOL 3 ML VIAL.NEB. NEB ONE ×2 (08:04→17:21)
[2023-02-18] MEDS: ALBUTEROL SO4 2.5/IPRATROPIUM 0.5 INH SOL 3 ML VIAL.NEB. NEB SCH ×4 (08:08→21:00)
[2023-02-18] MEDS ORDERED: methaDONE HCL 10 MG TABLET PO ONE (09:05)
[2023-02-18] MEDS ORDERED: methaDONE HCL 10 MG TABLET ONE ×2 (09:12→09:14)
[2023-02-18] MEDS ORDERED: methaDONE HCL 40 MG DISPERSABLE TABLET ONE (09:14)
[2023-02-18] MEDS ORDERED: AZITHROMYCIN 250 MG TABLET ONE (10:00)
[2023-02-18] MEDS ORDERED: LISINOPRIL 20 MG TABLET ONE (10:00)
[2023-02-18] MEDS ORDERED: FOLIC ACID 1 MG TABLET (FP) ONE (10:00)
[2023-02-18] MEDS ORDERED: methylPREDNISolone NA SUCC 40 MG/1 ML VIAL ONE (10:00)
[2023-02-18] MEDS ORDERED: CEFTRIAXONE 1 GM/50 ML BAG ONE (10:00)
[2023-02-18] MEDS ORDERED: THIAMINE HCL 100 MG TABLET (FP) ONE (10:00)
[2023-02-18] MEDS: FOLIC ACID 1 MG TABLET (FP) PO SCH (10:03)
[2023-02-18] MEDS: THIAMINE HCL 100 MG TABLET (FP) PO SCH (10:03)
[2023-02-18] MEDS: methylPREDNISolone NA SUCC 40 MG/1 ML VIAL IVPUSH SCH ×2 (10:03→21:10)
[2023-02-18] MEDS: LISINOPRIL 20 MG TABLET PO SCH (10:03)
[2023-02-18] MEDS: CEFTRIAXONE 1 GM in DEXTROSE 5%-WATER - 50 ML IVPB SCH (10:03)
[2023-02-18] MEDS: AZITHROMYCIN 500 MG TABLET PO SCH (10:03)
[2023-02-18] MEDS ORDERED: chlordiazePOXIDE HCL 25 MG CAPSULE PO PRN (10:33)
[2023-02-18] MEDS ORDERED: NICOTINE 7 MG/24 HOURS TOPICAL PATCH TD ONE (11:30)
[2023-02-18] MEDS ORDERED: chlordiazePOXIDE HCL 25 MG CAPSULE ONE ×2 (11:30→17:22)
[2023-02-18] MEDS: chlordiazePOXIDE HCL 25 MG CAPSULE PO SCH ×3 (11:33→22:17)
[2023-02-18] MEDS: BUDESONIDE/FORMETEROL FUMARATE 160/4.5 mcg INHALER IH SCH ×2 (11:34→22:14)
[2023-02-18] MEDS: NICOTINE 7 MG/24 HOURS TOPICAL PATCH TD SCH (11:34)
[2023-02-18] MEDS: KETOCONAZOLE 2% TOPICAL CREAM 15 GM TUBE TP SCH ×2 (11:34→22:14)
[2023-02-18] MEDS: MONTELUKAST NA 10 MG TABLET PO SCH (21:10)
[2023-02-19] MEDS: methylPREDNISolone NA SUCC 40 MG/1 ML VIAL IVPUSH SCH ×3 (01:02→18:22)
[2023-02-19] MEDS: ONDANSETRON 4 MG/2 ML VIAL IVPUSH PRN ×2 (02:41→12:50)
[2023-02-19] MEDS: guaiFENesin 200 MG/10 ML 10 ML UNIT-DOSE CUPS PO PRN ×2 (02:41→12:50)
[2023-02-19] MEDS: chlordiazePOXIDE HCL 25 MG CAPSULE PO SCH ×4 (05:04→22:32)
[2023-02-19] MEDS: ALBUTEROL SO4 2.5/IPRATROPIUM 0.5 INH SOL 3 ML VIAL.NEB. NEB SCH ×4 (07:35→20:27)
[2023-02-19 07:53] LABS: BASO % 1.2 % (0-2.0); EOS % 0.8 % (0-4.5); HEMATOCRIT 33.9 % (35.4-49); HEMOGLOBIN 11.5 GM/dL (11.7-16.9); LYMPH % 26.4 % (8-40); MCH 30.1 pg (25.7-33.7); MCHC 33.9 g/dl (32.0-35.9); MEAN CELL VOLUME 88.9 fl (80-96); MEAN PLT VOLUME 8.2 fl (7.5-11.1); MONO % 5.4 % (3.8-10.2); NEUT % 66.2 % (42.8-82.8); PLATELET COUNT 325 10^3/uL (134-434); RBC 3.82 M/mm3 (4.00-5.60); RDW 15.9 % (11.9-15.9); WHITE BLOOD COUNT 10.2 K/mm3 (4.0-10.0)
[2023-02-19 08:11] LABS: POTASSIUM 4.3 mmol/L (3.5-5.1)
[2023-02-19 08:18] LABS: ALBUMIN 2.2 g/dl (3.4-5.0); BLOOD UREA NITROGEN 13.6 mg/dL (7-18); CALCIUM 8.3 mg/dL (8.5-10.1); MAGNESIUM 2.1 mg/dL (1.8-2.4)
[2023-02-19 08:21] LABS: CREATININE 0.8 mg/dL (0.55-1.3); PHOSPHOROUS 3.3 mg/dL (2.5-4.9)
[2023-02-19 08:22] LABS: BILIRUBIN,TOTAL 0.2 mg/dL (0.2-1)
[2023-02-19] MEDS: NICOTINE 7 MG/24 HOURS TOPICAL PATCH TD SCH (10:44)
[2023-02-19] MEDS: FOLIC ACID 1 MG TABLET (FP) PO SCH (10:44)
[2023-02-19] MEDS: THIAMINE HCL 100 MG TABLET (FP) PO SCH (10:44)
[2023-02-19] MEDS: LISINOPRIL 20 MG TABLET PO SCH (10:44)
[2023-02-19] MEDS: BUDESONIDE/FORMETEROL FUMARATE 160/4.5 mcg INHALER IH SCH ×2 (10:53→22:31)
[2023-02-19] MEDS: CEFTRIAXONE 1 GM in DEXTROSE 5%-WATER - 50 ML IVPB SCH ×2 (12:01→12:16)
[2023-02-19] MEDS: AZITHROMYCIN 250 MG TABLET PO SCH (12:01)
[2023-02-19] MEDS: KETOCONAZOLE 2% TOPICAL CREAM 15 GM TUBE TP SCH ×2 (12:03→22:31)
[2023-02-19] MEDS: AZITHROMYCIN 500 MG TABLET PO SCH (12:17)
[2023-02-19] MEDS: MONTELUKAST NA 10 MG TABLET PO SCH (22:32)
[2023-02-20] MEDS: methylPREDNISolone NA SUCC 40 MG/1 ML VIAL IVPUSH SCH ×3 (02:22→17:57)
[2023-02-20] MEDS: chlordiazePOXIDE HCL 25 MG CAPSULE PO SCH ×4 (05:43→22:04)
[2023-02-20] MEDS: guaiFENesin 200 MG/10 ML 10 ML UNIT-DOSE CUPS PO PRN ×3 (05:56→21:49)
[2023-02-20] MEDS: ALBUTEROL SO4 2.5/IPRATROPIUM 0.5 INH SOL 3 ML VIAL.NEB. NEB SCH ×4 (07:44→19:55)
[2023-02-20] MEDS: THIAMINE HCL 100 MG TABLET (FP) PO SCH (09:16)
[2023-02-20] MEDS: LISINOPRIL 20 MG TABLET PO SCH (09:16)
[2023-02-20] MEDS: AZITHROMYCIN 250 MG TABLET PO SCH (09:16)
[2023-02-20] MEDS: CEFTRIAXONE 1 GM in DEXTROSE 5%-WATER - 50 ML IVPB SCH (09:16)
[2023-02-20] MEDS: PANTOPRAZOLE 40 MG TABLET PO SCH (09:16)
[2023-02-20] MEDS: ENOXAPARIN NA (PORCINE) 40 MG/0.4 ML DISP.SYRIN SQ SCH (09:17)
[2023-02-20] MEDS: NICOTINE 7 MG/24 HOURS TOPICAL PATCH TD SCH (09:17)
[2023-02-20] MEDS: FOLIC ACID 1 MG TABLET (FP) PO SCH (09:17)
[2023-02-20] MEDS: BUDESONIDE/FORMETEROL FUMARATE 160/4.5 mcg INHALER IH SCH ×2 (09:17→21:58)
[2023-02-20] MEDS: KETOCONAZOLE 2% TOPICAL CREAM 15 GM TUBE TP SCH ×2 (10:23→21:58)
[2023-02-20] MEDS: IBUPROFEN 800 MG/8 ML IJ IVPB PRN ×2 (11:31→21:47)
[2023-02-20] MEDS: ONDANSETRON 4 MG/2 ML VIAL IVPUSH PRN ×2 (13:40→21:48)
[2023-02-20] MEDS: PIPERACILLIN/TAZOB 3.375 GM 3.375 GM in DEXTROSE 5%-WATER - 50 ML IVPB SCH (17:57)
[2023-02-20] MEDS: MONTELUKAST NA 10 MG TABLET PO SCH (21:42)
[2023-02-21] MEDS ORDERED: chlordiazePOXIDE HCL 10 MG CAPSULE PO PRN
[2023-02-21] MEDS: methylPREDNISolone NA SUCC 40 MG/1 ML VIAL IVPUSH SCH ×3 (01:56→22:48)
[2023-02-21] MEDS: PIPERACILLIN/TAZOB 3.375 GM 3.375 GM in DEXTROSE 5%-WATER - 50 ML IVPB SCH ×3 (01:56→18:57)
[2023-02-21] MEDS: chlordiazePOXIDE HCL 10 MG CAPSULE PO SCH ×4 (05:21→22:49)
[2023-02-21] MEDS: guaiFENesin 200 MG/10 ML 10 ML UNIT-DOSE CUPS PO PRN ×2 (06:45→18:57)
[2023-02-21] MEDS: ALBUTEROL SO4 2.5/IPRATROPIUM 0.5 INH SOL 3 ML VIAL.NEB. NEB SCH ×4 (07:15→19:33)
[2023-02-21 09:34] LABS: HEMATOCRIT 34.8 % (35.4-49); HEMOGLOBIN 11.6 GM/dL (11.7-16.9); MCH 29.8 pg (25.7-33.7); MCHC 33.3 g/dl (32.0-35.9); MEAN CELL VOLUME 89.4 fl (80-96); MEAN PLT VOLUME 8.3 fl (7.5-11.1); PLATELET COUNT 379 10^3/uL (134-434); RBC 3.89 M/mm3 (4.00-5.60); RDW 16.1 % (11.9-15.9); WHITE BLOOD COUNT 20.6 K/mm3 (4.0-10.0)
[2023-02-21] MEDS: THIAMINE HCL 100 MG TABLET (FP) PO SCH (09:47)
[2023-02-21] MEDS: FOLIC ACID 1 MG TABLET (FP) PO SCH (09:47)
[2023-02-21] MEDS: NICOTINE 7 MG/24 HOURS TOPICAL PATCH TD SCH (09:48)
[2023-02-21] MEDS: ENOXAPARIN NA (PORCINE) 40 MG/0.4 ML DISP.SYRIN SQ SCH (09:48)
[2023-02-21] MEDS: BUDESONIDE/FORMETEROL FUMARATE 160/4.5 mcg INHALER IH SCH ×2 (09:48→22:57)
[2023-02-21] MEDS: PANTOPRAZOLE 40 MG TABLET PO SCH (09:48)
[2023-02-21] MEDS: KETOCONAZOLE 2% TOPICAL CREAM 15 GM TUBE TP SCH ×2 (09:49→22:58)
[2023-02-21 09:58] LABS: POTASSIUM 5.2 mmol/L (3.5-5.1)
[2023-02-21] MEDS: LISINOPRIL 20 MG TABLET PO SCH (09:58)
[2023-02-21 10:01] LABS: CALCIUM 9.3 mg/dL (8.5-10.1)
[2023-02-21 10:03] LABS: BLOOD UREA NITROGEN 29.2 mg/dL (7-18); MAGNESIUM 2.4 mg/dL (1.8-2.4)
[2023-02-21 10:06] LABS: BILIRUBIN,TOTAL 0.2 mg/dL (0.2-1); CREATININE 1.1 mg/dL (0.55-1.3)
[2023-02-21 10:08] LABS: TOT PROT 7.1 g/dl (6.4-8.2)
[2023-02-21 10:10] LABS: ALBUMIN 2.7 g/dl (3.4-5.0)
[2023-02-21 11:47] LABS: ANISOCYTOSIS 1+; MACROCYTOSIS 0; OVALOCYTE 2+
[2023-02-21] MEDS: MONTELUKAST NA 10 MG TABLET PO SCH (22:48)
[2023-02-22] MEDS: PIPERACILLIN/TAZOB 3.375 GM 3.375 GM in DEXTROSE 5%-WATER - 50 ML IVPB SCH ×3 (02:58→18:04)
[2023-02-22] MEDS: chlordiazePOXIDE HCL 10 MG CAPSULE PO ONE (05:26)
[2023-02-22] MEDS: chlordiazePOXIDE HCL 10 MG CAPSULE PO SCH ×2 (05:26→18:04)
[2023-02-22] MEDS: ALBUTEROL SO4 2.5/IPRATROPIUM 0.5 INH SOL 3 ML VIAL.NEB. NEB SCH ×4 (07:10→20:15)
[2023-02-22 07:34] LABS: BASO % 1.2 % (0-2.0); EOS % 0.2 % (0-4.5); HEMATOCRIT 32.9 % (35.4-49); HEMOGLOBIN 10.9 GM/dL (11.7-16.9); LYMPH % 19.6 % (8-40); MCH 29.8 pg (25.7-33.7); MCHC 33.2 g/dl (32.0-35.9); MEAN CELL VOLUME 89.5 fl (80-96); MEAN PLT VOLUME 7.8 fl (7.5-11.1); MONO % 8.2 % (3.8-10.2); NEUT % 70.8 % (42.8-82.8); PLATELET COUNT 349 10^3/uL (134-434); RBC 3.67 M/mm3 (4.00-5.60); RDW 16.4 % (11.9-15.9); WHITE BLOOD COUNT 14.9 K/mm3 (4.0-10.0)
[2023-02-22 07:46] LABS: POTASSIUM 4.5 mmol/L (3.5-5.1)
[2023-02-22 07:48] LABS: CALCIUM 8.8 mg/dL (8.5-10.1)
[2023-02-22 07:50] LABS: ALBUMIN 2.6 g/dl (3.4-5.0); BLOOD UREA NITROGEN 27.6 mg/dL (7-18)
[2023-02-22 07:52] LABS: MAGNESIUM 2.2 mg/dL (1.8-2.4)
[2023-02-22 07:54] LABS: BILIRUBIN,TOTAL 0.1 mg/dL (0.2-1); TOT PROT 6.5 g/dl (6.4-8.2)
[2023-02-22] MEDS: LISINOPRIL 20 MG TABLET PO SCH (10:55)
[2023-02-22] MEDS: FOLIC ACID 1 MG TABLET (FP) PO SCH (10:55)
[2023-02-22] MEDS: BUDESONIDE/FORMETEROL FUMARATE 160/4.5 mcg INHALER IH SCH ×2 (10:55→21:27)
[2023-02-22] MEDS: methylPREDNISolone NA SUCC 40 MG/1 ML VIAL IVPUSH SCH ×2 (10:55→21:27)
[2023-02-22] MEDS: THIAMINE HCL 100 MG TABLET (FP) PO SCH (10:55)
[2023-02-22] MEDS: KETOCONAZOLE 2% TOPICAL CREAM 15 GM TUBE TP SCH ×2 (10:55→21:30)
[2023-02-22] MEDS: NICOTINE 7 MG/24 HOURS TOPICAL PATCH TD SCH (10:55)
[2023-02-22] MEDS: ENOXAPARIN NA (PORCINE) 40 MG/0.4 ML DISP.SYRIN SQ SCH (10:55)
[2023-02-22] MEDS: PANTOPRAZOLE 40 MG TABLET PO SCH (10:55)
[2023-02-22] MEDS: MONTELUKAST NA 10 MG TABLET PO SCH (21:28)
[2023-02-23] MEDS: PIPERACILLIN/TAZOB 3.375 GM 3.375 GM in DEXTROSE 5%-WATER - 50 ML IVPB SCH ×3 (02:17→17:15)
[2023-02-23] MEDS: chlordiazePOXIDE HCL 10 MG CAPSULE PO ONE (05:07)
[2023-02-23] MEDS: ALBUTEROL SO4 2.5/IPRATROPIUM 0.5 INH SOL 3 ML VIAL.NEB. NEB SCH ×4 (08:22→20:21)
[2023-02-23 11:14] LABS: BASO % 0.6 % (0-2.0); EOS % 0.1 % (0-4.5); HEMATOCRIT 35.9 % (35.4-49); HEMOGLOBIN 11.4 GM/dL (11.7-16.9); LYMPH % 11.8 % (8-40); MCH 29.3 pg (25.7-33.7); MCHC 31.9 g/dl (32.0-35.9); MEAN PLT VOLUME 8.7 fl (7.5-11.1); MONO % 7.1 % (3.8-10.2); NEUT % 80.4 % (42.8-82.8); PLATELET COUNT 388 10^3/uL (134-434); RDW 16.3 % (11.9-15.9); WHITE BLOOD COUNT 18.4 K/mm3 (4.0-10.0)
[2023-02-23 11:29] LABS: POTASSIUM 4.3 mmol/L (3.5-5.1)
[2023-02-23 11:31] LABS: CALCIUM 9.4 mg/dL (8.5-10.1)
[2023-02-23 11:33] LABS: ALBUMIN 2.8 g/dl (3.4-5.0); BLOOD UREA NITROGEN 26.5 mg/dL (7-18); MAGNESIUM 2.3 mg/dL (1.8-2.4)
[2023-02-23 11:35] LABS: CREATININE 0.9 mg/dL (0.55-1.3)
[2023-02-23 11:37] LABS: BILIRUBIN,TOTAL 0.2 mg/dL (0.2-1); TOT PROT 7.3 g/dl (6.4-8.2)
[2023-02-23] MEDS: LISINOPRIL 20 MG TABLET PO SCH (11:38)
[2023-02-23] MEDS: THIAMINE HCL 100 MG TABLET (FP) PO SCH (11:38)
[2023-02-23] MEDS: PANTOPRAZOLE 40 MG TABLET PO SCH (11:38)
[2023-02-23] MEDS: ENOXAPARIN NA (PORCINE) 40 MG/0.4 ML DISP.SYRIN SQ SCH (11:38)
[2023-02-23] MEDS: NICOTINE 7 MG/24 HOURS TOPICAL PATCH TD SCH (11:39)
[2023-02-23] MEDS: FOLIC ACID 1 MG TABLET (FP) PO SCH (11:39)
[2023-02-23] MEDS: methylPREDNISolone NA SUCC 40 MG/1 ML VIAL IVPUSH SCH ×2 (11:41→21:47)
[2023-02-23] MEDS: KETOCONAZOLE 2% TOPICAL CREAM 15 GM TUBE TP SCH ×2 (11:41→21:48)
[2023-02-23] MEDS: BUDESONIDE/FORMETEROL FUMARATE 160/4.5 mcg INHALER IH SCH ×2 (11:42→21:48)
[2023-02-23 14:53] VITALS: RESP 18
[2023-02-23] MEDS: MONTELUKAST NA 10 MG TABLET PO SCH (21:46)
[2023-02-23] MEDS ORDERED: HYDROCORTISONE 1% TOPICAL CREAM 30 GM TUBE TP PRN (22:32)
[2023-02-24] MEDS: PIPERACILLIN/TAZOB 3.375 GM 3.375 GM in DEXTROSE 5%-WATER - 50 ML IVPB SCH ×3 (02:33→18:36)
[2023-02-24] MEDS: ALBUTEROL SO4 2.5/IPRATROPIUM 0.5 INH SOL 3 ML VIAL.NEB. NEB SCH ×4 (07:10→20:13)
[2023-02-24 07:48] LABS: BASO % 0.6 % (0-2.0); HEMATOCRIT 33.2 % (35.4-49); HEMOGLOBIN 10.7 GM/dL (11.7-16.9); LYMPH % 11.1 % (8-40); MCH 29.4 pg (25.7-33.7); MCHC 32.4 g/dl (32.0-35.9); MEAN PLT VOLUME 8.5 fl (7.5-11.1); MONO % 5.4 % (3.8-10.2); NEUT % 82.9 % (42.8-82.8); PLATELET COUNT 398 10^3/uL (134-434); RBC 3.65 M/mm3 (4.00-5.60); RDW 16.1 % (11.9-15.9)
[2023-02-24 08:18] LABS: CALCIUM 9.1 mg/dL (8.5-10.1)
[2023-02-24 08:19] LABS: ALBUMIN 2.6 g/dl (3.4-5.0); BLOOD UREA NITROGEN 30.5 mg/dL (7-18); MAGNESIUM 2.2 mg/dL (1.8-2.4)
[2023-02-24 08:23] LABS: BILIRUBIN,TOTAL 0.4 mg/dL (0.2-1); TOT PROT 6.6 g/dl (6.4-8.2)
[2023-02-24] MEDS ORDERED: PIPERACILLIN/TAZOBACTAM 3.375 GM VIAL IVPB ONE (10:28)
[2023-02-24] MEDS: LISINOPRIL 20 MG TABLET PO SCH (10:33)
[2023-02-24] MEDS: NICOTINE 7 MG/24 HOURS TOPICAL PATCH TD SCH ×2 (10:33→10:58)
[2023-02-24] MEDS: FOLIC ACID 1 MG TABLET (FP) PO SCH (10:33)
[2023-02-24] MEDS: PANTOPRAZOLE 40 MG TABLET PO SCH (10:33)
[2023-02-24] MEDS: THIAMINE HCL 100 MG TABLET (FP) PO SCH (10:33)
[2023-02-24] MEDS: ENOXAPARIN NA (PORCINE) 40 MG/0.4 ML DISP.SYRIN SQ SCH (10:34)
[2023-02-24] MEDS: BUDESONIDE/FORMETEROL FUMARATE 160/4.5 mcg INHALER IH SCH ×2 (10:34→22:27)
[2023-02-24] MEDS: methylPREDNISolone NA SUCC 40 MG/1 ML VIAL IVPUSH SCH ×2 (10:34→22:20)
[2023-02-24] MEDS: KETOCONAZOLE 2% TOPICAL CREAM 15 GM TUBE TP SCH ×2 (10:36→22:26)
[2023-02-24] MEDS: MONTELUKAST NA 10 MG TABLET PO SCH (22:20)
[2023-02-25] MEDS: PIPERACILLIN/TAZOB 3.375 GM 3.375 GM in DEXTROSE 5%-WATER - 50 ML IVPB SCH ×2 (01:50→10:12)
[2023-02-25 06:00] VITALS: BP 137/84; TEMP 97.9
[2023-02-25] MEDS: ALBUTEROL SO4 2.5/IPRATROPIUM 0.5 INH SOL 3 ML VIAL.NEB. NEB SCH (07:45)
[2023-02-25] MEDS ORDERED: methylPREDNISolone NA SUCC 40 MG/1 ML VIAL IVPUSH SCH (10:00)
[2023-02-25 10:09] VITALS: PULSE 90
[2023-02-25] MEDS: LISINOPRIL 20 MG TABLET PO SCH (10:12)
[2023-02-25] MEDS: KETOCONAZOLE 2% TOPICAL CREAM 15 GM TUBE TP SCH (10:12)
[2023-02-25] MEDS: THIAMINE HCL 100 MG TABLET (FP) PO SCH (10:12)
[2023-02-25] MEDS: NICOTINE 7 MG/24 HOURS TOPICAL PATCH TD SCH (10:12)
[2023-02-25] MEDS: PANTOPRAZOLE 40 MG TABLET PO SCH (10:12)
[2023-02-25] MEDS: FOLIC ACID 1 MG TABLET (FP) PO SCH (10:12)
[2023-02-25] MEDS: BUDESONIDE/FORMETEROL FUMARATE 160/4.5 mcg INHALER IH SCH (10:12)
[2023-02-25] MEDS: ENOXAPARIN NA (PORCINE) 40 MG/0.4 ML DISP.SYRIN SQ SCH (10:13)
== END 2023-02-25 11:15 | disposition home or self-care (01) | DRG 140 ==
LOC: JER 22:12 → JERBED 02-18 01:06 → J8W 02-18 19:52 → OBSVTOIN 02-20 08:48
PROVIDERS: ADMIT Internal Medicine; ATTEND Nurse Practitioner Acute Care
DX: J44.0 Chronic obstructive pulmonary disease with (acute) lower respiratory infection (principal); J18.9 Pneumonia, unspecified organism; F20.9 Schizophrenia, unspecified; J45.51 Severe persistent asthma with (acute) exacerbation; F14.20 Cocaine dependence, uncomplicated; Z96.641 Presence of right artificial hip joint; F17.210 Nicotine dependence, cigarettes, uncomplicated; I10 Essential (primary) hypertension; J98.11 Atelectasis; J44.1 Chronic obstructive pulmonary disease with (acute) exacerbation; S81.801A Unspecified open wound, right lower leg, initial encounter; F10.20 Alcohol dependence, uncomplicated; L97.818 Non-pressure chronic ulcer of other part of right lower leg with other specified severity; L03.115 Cellulitis of right lower limb; B95.61 Methicillin susceptible Staphylococcus aureus infection as the cause of diseases classified elsewhere; F19.10 Other psychoactive substance abuse, uncomplicated
CPT/HCPCS: 0241U-QW; 36415; 71045-TC-FY; 71250-TC; 73700-TC-RT; 80053; 82803; 82962; 83735; 83880; 84100; 84484; 85025; 85027; 85610; 85730; 87070; 87077; 87186; 87205; 93005; 93010; 93970-TC; 94010; 94640; 94761; 97116-GP; 97161-GP; 99291; G0378

== ENCOUNTER 2023-04-10 00:12 | Inpatient (IN) | payer BC ==
[2023-04-10 00:35] VITALS: BMI 22.8
[2023-04-10] MEDS ORDERED: methylPREDNISolone NA SUCC 125 MG/2 ML VIAL IVPB ONE (00:59)
[2023-04-10] MEDS: ALBUTEROL SO4 2.5/IPRATROPIUM 0.5 INH SOL 3 ML VIAL.NEB. NEB SCH ×3 (01:15→01:57)
[2023-04-10] MEDS ORDERED: ALBUTEROL SO4 2.5/IPRATROPIUM 0.5 INH SOL 3 ML VIAL.NEB. NEB ONE (01:15)
[2023-04-10] MEDS ORDERED: methylPREDNISolone NA SUCC 125 MG/2 ML VIAL ONE (01:22)
[2023-04-10] MEDS ORDERED: ONDANSETRON 4 MG/2 ML VIAL IVPUSH ONE (02:04)
[2023-04-10] MEDS ORDERED: ONDANSETRON 4 MG/2 ML VIAL ONE (02:05)
[2023-04-10 02:19] LABS: INR 0.97 (0.83-1.09); PROTHROMBIN TIME (PATIENT) 11.2 SEC (9.7-13.0)
[2023-04-10 02:22] LABS: ACTIVATED PTT 21.2 SECONDS (25.2-36.5)
[2023-04-10 02:35] LABS: CALCIUM 8.2 mg/dL (8.5-10.1)
[2023-04-10 02:36] LABS: ALBUMIN 2.6 g/dl (3.4-5.0); BLOOD UREA NITROGEN 15.1 mg/dL (7-18); MAGNESIUM 2.1 mg/dL (1.8-2.4)
[2023-04-10 02:40] LABS: TOT PROT 6.8 g/dl (6.4-8.2)
[2023-04-10 02:41] LABS: BILIRUBIN,TOTAL 0.1 mg/dL (0.2-1)
[2023-04-10 03:25] LABS: BASO % 1.2 % (0-2.0); EOS % 13.2 % (0-4.5); HEMATOCRIT 33.8 % (35.4-49); HEMOGLOBIN 11.3 GM/dL (11.7-16.9); MCH 29.8 pg (25.7-33.7); MCHC 33.4 g/dl (32.0-35.9); MEAN CELL VOLUME 89.5 fl (80-96); MEAN PLT VOLUME 7.6 fl (7.5-11.1); MONO % 7.6 % (3.8-10.2); PLATELET COUNT 257 10^3/uL (134-434); RBC 3.78 M/mm3 (4.00-5.60); RDW 16.4 % (11.9-15.9); VENOUS BASE EXCESS 0.4 mmol/L (-2-2); VENOUS O2 SATURATION 89.3 % (70-80); VENOUS PCO2 44.2 mmHg (38-52); VENOUS PH 7.383 (7.310-7.410); WHITE BLOOD COUNT 7.2 K/mm3 (4.0-10.0)
[2023-04-10] MEDS ORDERED: ALBUTEROL SO4 0.083% IH SOL 2.5 MG/3 ML VIAL.NEB. NEB PRN (05:09)
[2023-04-10] MEDS ORDERED: guaiFENesin/D-METHORPHAN HB 10 ML UNIT-DOSE CUPS PO PRN (06:19)
[2023-04-10] MEDS ORDERED: ONDANSETRON 4 MG/2 ML VIAL IVPUSH PRN (08:15)
[2023-04-10] MEDS: ENOXAPARIN NA (PORCINE) 40 MG/0.4 ML DISP.SYRIN SQ SCH (09:15)
[2023-04-10] MEDS: methylPREDNISolone NA SUCC 40 MG/1 ML VIAL IVPUSH SCH ×2 (09:16→18:00)
[2023-04-10] MEDS: MONTELUKAST NA 10 MG TABLET PO SCH (09:16)
[2023-04-10] MEDS: LISINOPRIL 20 MG TABLET PO SCH (09:16)
[2023-04-10] MEDS: PANTOPRAZOLE 40 MG TABLET PO SCH (09:16)
[2023-04-10] MEDS ORDERED: methaDONE HCL 40 MG DISPERSABLE TABLET PO SCH (10:00)
[2023-04-10] MEDS: MULTIVITAMINS (DAILY MVI) TABLET (FP) PO SCH (10:40)
[2023-04-10] MEDS: FOLIC ACID 1 MG TABLET (FP) PO SCH (10:41)
[2023-04-10] MEDS: THIAMINE HCL 100 MG TABLET (FP) PO SCH (10:41)
[2023-04-10] MEDS: ALBUTEROL SO4 0.083% IH SOL 2.5 MG/3 ML VIAL.NEB. NEB SCH ×3 (11:45→20:08)
[2023-04-10] MEDS: COLLAGENASE CLOSTRIDIUM HIST. 30 GRAMS TUBE TP SCH (12:41)
[2023-04-10] MEDS: DOCUSATE SODIUM 100 MG CAPSULE (FP) PO SCH (22:04)
[2023-04-11] MEDS: methylPREDNISolone NA SUCC 40 MG/1 ML VIAL IVPUSH SCH ×3 (01:28→17:48)
[2023-04-11] MEDS: BUDESONIDE/FORMETEROL FUMARATE 80/4.5 mcg INHALER IH SCH ×2 (03:30→11:14)
[2023-04-11] MEDS: methaDONE HCL 40 MG DISPERSABLE TABLET PO SCH (05:38)
[2023-04-11] MEDS: ALBUTEROL SO4 0.083% IH SOL 2.5 MG/3 ML VIAL.NEB. NEB SCH ×4 (07:27→20:18)
[2023-04-11 08:10] LABS: BASO % 0.6 % (0-2.0); HEMATOCRIT 35.3 % (35.4-49); HEMOGLOBIN 11.3 GM/dL (11.7-16.9); LYMPH % 7.3 % (8-40); MCH 29.3 pg (25.7-33.7); MCHC 32.1 g/dl (32.0-35.9); MEAN CELL VOLUME 91.4 fl (80-96); MEAN PLT VOLUME 9.2 fl (7.5-11.1); MONO % 1.7 % (3.8-10.2); NEUT % 90.4 % (42.8-82.8); PLATELET COUNT 297 10^3/uL (134-434); RBC 3.86 M/mm3 (4.00-5.60)
[2023-04-11 08:24] LABS: POTASSIUM 4.7 mmol/L (3.5-5.1)
[2023-04-11 08:40] LABS: BLOOD UREA NITROGEN 18.2 mg/dL (7-18); CALCIUM 8.3 mg/dL (8.5-10.1)
[2023-04-11 08:44] LABS: PHOSPHOROUS 3.3 mg/dL (2.5-4.9)
[2023-04-11] MEDS: THIAMINE HCL 100 MG TABLET (FP) PO SCH (11:11)
[2023-04-11] MEDS: ENOXAPARIN NA (PORCINE) 40 MG/0.4 ML DISP.SYRIN SQ SCH (11:12)
[2023-04-11] MEDS: CEFTRIAXONE 1 GM in DEXTROSE 5%-WATER - 50 ML IVPB SCH (11:12)
[2023-04-11] MEDS: MULTIVITAMINS (DAILY MVI) TABLET (FP) PO SCH (11:12)
[2023-04-11] MEDS: FOLIC ACID 1 MG TABLET (FP) PO SCH (11:12)
[2023-04-11] MEDS: PANTOPRAZOLE 40 MG TABLET PO SCH (11:12)
[2023-04-11] MEDS: MONTELUKAST NA 10 MG TABLET PO SCH (11:12)
[2023-04-11] MEDS: amLODIPine BESYLATE 5 MG TABLET (FP) PO SCH (11:12)
[2023-04-11] MEDS: LISINOPRIL 20 MG TABLET PO SCH (11:12)
[2023-04-11] MEDS: COLLAGENASE CLOSTRIDIUM HIST. 30 GRAMS TUBE TP SCH (11:13)
[2023-04-11] MEDS: DOCUSATE SODIUM 100 MG CAPSULE (FP) PO SCH ×2 (11:13→21:15)
[2023-04-11] MEDS: TIOTROPIUM BROMIDE 2.5 MCG (SPIRIVA) RESPIMAT INHALER IH SCH (14:15)
[2023-04-12] MEDS: methylPREDNISolone NA SUCC 40 MG/1 ML VIAL IVPUSH SCH ×4 (01:01→22:00)
[2023-04-12] MEDS ORDERED: ALBUTEROL SO4 2.5/IPRATROPIUM 0.5 INH SOL 3 ML VIAL.NEB. NEB PRN (01:53)
[2023-04-12] MEDS: methaDONE HCL 40 MG DISPERSABLE TABLET PO SCH (05:38)
[2023-04-12 08:18] LABS: BASO % 0.4 % (0-2.0); HEMATOCRIT 37.2 % (35.4-49); HEMOGLOBIN 12.2 GM/dL (11.7-16.9); LYMPH % 8.5 % (8-40); MCH 29.8 pg (25.7-33.7); MCHC 32.7 g/dl (32.0-35.9); MEAN CELL VOLUME 91.1 fl (80-96); MONO % 1.5 % (3.8-10.2); NEUT % 89.6 % (42.8-82.8); PLATELET COUNT 329 10^3/uL (134-434); RBC 4.08 M/mm3 (4.00-5.60); WHITE BLOOD COUNT 12.2 K/mm3 (4.0-10.0)
[2023-04-12 08:38] LABS: POTASSIUM 4.7 mmol/L (3.5-5.1)
[2023-04-12 08:45] LABS: ALBUMIN 2.6 g/dl (3.4-5.0); CALCIUM 8.4 mg/dL (8.5-10.1); MAGNESIUM 2.2 mg/dL (1.8-2.4)
[2023-04-12 08:48] LABS: BILIRUBIN,TOTAL 0.2 mg/dL (0.2-1); CREATININE 0.9 mg/dL (0.55-1.3); PHOSPHOROUS 3.6 mg/dL (2.5-4.9); TOT PROT 7.2 g/dl (6.4-8.2)
[2023-04-12] MEDS: ALBUTEROL SO4 0.083% IH SOL 2.5 MG/3 ML VIAL.NEB. NEB SCH ×4 (09:17→20:07)
[2023-04-12] MEDS: FOLIC ACID 1 MG TABLET (FP) PO SCH (10:31)
[2023-04-12] MEDS: amLODIPine BESYLATE 5 MG TABLET (FP) PO SCH (10:31)
[2023-04-12] MEDS: THIAMINE HCL 100 MG TABLET (FP) PO SCH (10:31)
[2023-04-12] MEDS: MONTELUKAST NA 10 MG TABLET PO SCH (10:31)
[2023-04-12] MEDS: DOCUSATE SODIUM 100 MG CAPSULE (FP) PO SCH ×3 (10:31→22:00)
[2023-04-12] MEDS: LISINOPRIL 20 MG TABLET PO SCH (10:31)
[2023-04-12] MEDS: MULTIVITAMINS (DAILY MVI) TABLET (FP) PO SCH (10:31)
[2023-04-12] MEDS: PANTOPRAZOLE 40 MG TABLET PO SCH (10:31)
[2023-04-12] MEDS: CEFTRIAXONE 1 GM in DEXTROSE 5%-WATER - 50 ML IVPB SCH (10:32)
[2023-04-12] MEDS: TIOTROPIUM BROMIDE 2.5 MCG (SPIRIVA) RESPIMAT INHALER IH SCH (10:33)
[2023-04-12] MEDS: ENOXAPARIN NA (PORCINE) 40 MG/0.4 ML DISP.SYRIN SQ SCH (10:33)
[2023-04-12] MEDS: COLLAGENASE CLOSTRIDIUM HIST. 30 GRAMS TUBE TP SCH (10:34)
[2023-04-12] MEDS: BUDESONIDE/FORMETEROL FUMARATE 80/4.5 mcg INHALER IH SCH (10:35)
[2023-04-12] MEDS ORDERED: ALBUTEROL SO4 0.083% IH SOL 2.5 MG/3 ML VIAL.NEB. NEB PRN (14:50)
[2023-04-12] MEDS ORDERED: ONDANSETRON 4 MG/2 ML VIAL IVPUSH PRN (15:16)
[2023-04-12] MEDS ORDERED: guaiFENesin/D-METHORPHAN HB 10 ML UNIT-DOSE CUPS PO PRN (15:16)
[2023-04-12] MEDS: ENOXAPARIN NA (PORCINE) 80 MG/0.8 ML DISP.SYRIN SQ SCH (22:00)
[2023-04-13] MEDS: methylPREDNISolone NA SUCC 40 MG/1 ML VIAL IVPUSH SCH ×4 (03:40→22:14)
[2023-04-13] MEDS: methaDONE HCL 40 MG DISPERSABLE TABLET PO SCH (05:21)
[2023-04-13 07:45] LABS: BASO % 0.3 % (0-2.0); HEMATOCRIT 37.2 % (35.4-49); HEMOGLOBIN 12.1 GM/dL (11.7-16.9); LYMPH % 11.2 % (8-40); MCH 29.3 pg (25.7-33.7); MCHC 32.5 g/dl (32.0-35.9); MEAN CELL VOLUME 90.3 fl (80-96); MEAN PLT VOLUME 8.9 fl (7.5-11.1); MONO % 4.9 % (3.8-10.2); NEUT % 83.6 % (42.8-82.8); PLATELET COUNT 326 10^3/uL (134-434); RBC 4.12 M/mm3 (4.00-5.60); RDW 16.2 % (11.9-15.9); WHITE BLOOD COUNT 14.6 K/mm3 (4.0-10.0)
[2023-04-13] MEDS: ALBUTEROL SO4 0.083% IH SOL 2.5 MG/3 ML VIAL.NEB. NEB SCH ×4 (08:10→20:06)
[2023-04-13 08:28] LABS: CHLORIDE 104 mmol/L (98-107); POTASSIUM 4.6 mmol/L (3.5-5.1); SODIUM 139 mmol/L (136-145)
[2023-04-13 08:31] LABS: CALCIUM 8.4 mg/dL (8.5-10.1)
[2023-04-13 08:32] LABS: ALBUMIN 2.4 g/dl (3.4-5.0); ANION GAP 8 MMOL/L (8-16); BLOOD UREA NITROGEN 20.5 mg/dL (7-18); CO2 27 mmol/L (21-32); GLUCOSE,RANDOM 112 mg/dL (74-106); MAGNESIUM 2.2 mg/dL (1.8-2.4)
[2023-04-13 08:35] LABS: CREATININE 0.9 mg/dL (0.55-1.3); PHOSPHOROUS 3.9 mg/dL (2.5-4.9); SGOT/AST 10 U/L (15-37); SGPT/ALT 17 U/L (13-61)
[2023-04-13 08:36] LABS: BILIRUBIN,TOTAL < 0.1 mg/dL (0.2-1); TOT PROT 6.5 g/dl (6.4-8.2)
[2023-04-13 08:38] LABS: ALK PHOS 81 U/L (45-117)
[2023-04-13] MEDS: ENOXAPARIN NA (PORCINE) 80 MG/0.8 ML DISP.SYRIN SQ SCH ×2 (10:03→22:15)
[2023-04-13] MEDS: PANTOPRAZOLE 40 MG TABLET PO SCH (10:04)
[2023-04-13] MEDS: FOLIC ACID 1 MG TABLET (FP) PO SCH (10:04)
[2023-04-13] MEDS: LISINOPRIL 20 MG TABLET PO SCH (10:04)
[2023-04-13] MEDS: DOCUSATE SODIUM 100 MG CAPSULE (FP) PO SCH ×4 (10:04→22:17)
[2023-04-13] MEDS: MULTIVITAMINS (DAILY MVI) TABLET (FP) PO SCH (10:04)
[2023-04-13] MEDS: THIAMINE HCL 100 MG TABLET (FP) PO SCH (10:04)
[2023-04-13] MEDS: amLODIPine BESYLATE 5 MG TABLET (FP) PO SCH (10:05)
[2023-04-13] MEDS: COLLAGENASE CLOSTRIDIUM HIST. 30 GRAMS TUBE TP SCH (10:07)
[2023-04-13] MEDS: CEFTRIAXONE 1 GM in DEXTROSE 5%-WATER - 50 ML IVPB SCH (10:07)
[2023-04-13] MEDS: TIOTROPIUM BROMIDE 2.5 MCG (SPIRIVA) RESPIMAT INHALER IH SCH (10:08)
[2023-04-13] MEDS: BUDESONIDE/FORMETEROL FUMARATE 80/4.5 mcg INHALER IH SCH (11:12)
[2023-04-13] MEDS: CLOTRIMAZOLE 1% CREAM TP SCH ×2 (11:12→22:40)
[2023-04-13] MEDS: MONTELUKAST NA 10 MG TABLET PO SCH (22:14)
[2023-04-14] MEDS: methylPREDNISolone NA SUCC 40 MG/1 ML VIAL IVPUSH SCH ×3 (02:20→20:30)
[2023-04-14] MEDS: methaDONE HCL 40 MG DISPERSABLE TABLET PO SCH (05:06)
[2023-04-14] MEDS: ALBUTEROL SO4 0.083% IH SOL 2.5 MG/3 ML VIAL.NEB. NEB SCH ×4 (07:45→20:07)
[2023-04-14] MEDS: PANTOPRAZOLE 40 MG TABLET PO SCH (10:06)
[2023-04-14] MEDS: FOLIC ACID 1 MG TABLET (FP) PO SCH (10:06)
[2023-04-14] MEDS: THIAMINE HCL 100 MG TABLET (FP) PO SCH (10:06)
[2023-04-14] MEDS: MULTIVITAMINS (DAILY MVI) TABLET (FP) PO SCH (10:06)
[2023-04-14] MEDS: DOCUSATE SODIUM 100 MG CAPSULE (FP) PO SCH ×3 (10:06→23:25)
[2023-04-14] MEDS: LISINOPRIL 20 MG TABLET PO SCH (10:06)
[2023-04-14] MEDS: CEFTRIAXONE 1 GM in DEXTROSE 5%-WATER - 50 ML IVPB SCH (10:07)
[2023-04-14] MEDS: ENOXAPARIN NA (PORCINE) 80 MG/0.8 ML DISP.SYRIN SQ SCH ×2 (10:07→21:46)
[2023-04-14 10:12] LABS: BASO % 0.7 % (0-2.0); EOS % 0.1 % (0-4.5); HEMATOCRIT 39.2 % (35.4-49); HEMOGLOBIN 12.7 GM/dL (11.7-16.9); LYMPH % 13.2 % (8-40); MCH 29.6 pg (25.7-33.7); MCHC 32.4 g/dl (32.0-35.9); MEAN CELL VOLUME 91.5 fl (80-96); MEAN PLT VOLUME 8.7 fl (7.5-11.1); MONO % 6.8 % (3.8-10.2); NEUT % 79.2 % (42.8-82.8); PLATELET COUNT 358 10^3/uL (134-434); RBC 4.29 M/mm3 (4.00-5.60); RDW 16.6 % (11.9-15.9); WHITE BLOOD COUNT 15.9 K/mm3 (4.0-10.0)
[2023-04-14] MEDS: amLODIPine BESYLATE 5 MG TABLET (FP) PO SCH (10:12)
[2023-04-14] MEDS: COLLAGENASE CLOSTRIDIUM HIST. 30 GRAMS TUBE TP SCH (10:13)
[2023-04-14] MEDS: CLOTRIMAZOLE 1% CREAM TP SCH ×2 (10:13→21:57)
[2023-04-14] MEDS: BUDESONIDE/FORMETEROL FUMARATE 80/4.5 mcg INHALER IH SCH (10:13)
[2023-04-14] MEDS: TIOTROPIUM BROMIDE 2.5 MCG (SPIRIVA) RESPIMAT INHALER IH SCH (10:13)
[2023-04-14 10:26] LABS: ALBUMIN 2.5 g/dl (3.4-5.0); BLOOD UREA NITROGEN 24.4 mg/dL (7-18); CALCIUM 8.3 mg/dL (8.5-10.1); MAGNESIUM 2.1 mg/dL (1.8-2.4)
[2023-04-14 10:29] LABS: CREATININE 0.9 mg/dL (0.55-1.3); PHOSPHOROUS 3.7 mg/dL (2.5-4.9)
[2023-04-14 10:31] LABS: BILIRUBIN,TOTAL 0.2 mg/dL (0.2-1); TOT PROT 6.6 g/dl (6.4-8.2)
[2023-04-14] MEDS: AMINO ACIDS/PROTEIN HYDROLYS 30 ML LIQUID.PKT PO SCH (17:50)
[2023-04-14] MEDS: MONTELUKAST NA 10 MG TABLET PO SCH (21:46)
[2023-04-15] MEDS: methaDONE HCL 40 MG DISPERSABLE TABLET PO SCH (05:07)
[2023-04-15] MEDS: ALBUTEROL SO4 0.083% IH SOL 2.5 MG/3 ML VIAL.NEB. NEB SCH ×4 (08:11→20:11)
[2023-04-15] MEDS ORDERED: cefTRIAXone SODIUM 1 GM VIAL ONE (09:17)
[2023-04-15] MEDS: methylPREDNISolone NA SUCC 40 MG/1 ML VIAL IVPUSH SCH ×2 (09:20→20:29)
[2023-04-15] MEDS: ENOXAPARIN NA (PORCINE) 80 MG/0.8 ML DISP.SYRIN SQ SCH ×2 (09:21→21:13)
[2023-04-15] MEDS: FOLIC ACID 1 MG TABLET (FP) PO SCH (09:21)
[2023-04-15] MEDS: PANTOPRAZOLE 40 MG TABLET PO SCH (09:22)
[2023-04-15] MEDS: THIAMINE HCL 100 MG TABLET (FP) PO SCH (09:22)
[2023-04-15] MEDS: amLODIPine BESYLATE 5 MG TABLET (FP) PO SCH (09:22)
[2023-04-15] MEDS: CEFTRIAXONE 1 GM in DEXTROSE 5%-WATER - 50 ML IVPB SCH (09:22)
[2023-04-15] MEDS: LISINOPRIL 20 MG TABLET PO SCH (09:22)
[2023-04-15] MEDS: MULTIVITAMINS (DAILY MVI) TABLET (FP) PO SCH (09:22)
[2023-04-15] MEDS: DOCUSATE SODIUM 100 MG CAPSULE (FP) PO SCH ×2 (09:22→21:13)
[2023-04-15] MEDS: COLLAGENASE CLOSTRIDIUM HIST. 30 GRAMS TUBE TP SCH (09:23)
[2023-04-15] MEDS: CLOTRIMAZOLE 1% CREAM TP SCH ×2 (09:24→21:13)
[2023-04-15] MEDS: AMINO ACIDS/PROTEIN HYDROLYS 30 ML LIQUID.PKT PO SCH ×2 (09:38→17:31)
[2023-04-15] MEDS: TIOTROPIUM BROMIDE 2.5 MCG (SPIRIVA) RESPIMAT INHALER IH SCH (11:19)
[2023-04-15] MEDS: BUDESONIDE/FORMETEROL FUMARATE 80/4.5 mcg INHALER IH SCH (11:19)
[2023-04-15] MEDS: MONTELUKAST NA 10 MG TABLET PO SCH (21:13)
[2023-04-16] MEDS: methaDONE HCL 40 MG DISPERSABLE TABLET PO SCH (05:06)
[2023-04-16] MEDS: ALBUTEROL SO4 0.083% IH SOL 2.5 MG/3 ML VIAL.NEB. NEB SCH ×2 (07:48→10:59)
[2023-04-16] MEDS: MULTIVITAMINS (DAILY MVI) TABLET (FP) PO SCH (09:50)
[2023-04-16] MEDS: AMINO ACIDS/PROTEIN HYDROLYS 30 ML LIQUID.PKT PO SCH (09:50)
[2023-04-16] MEDS: CEFTRIAXONE 1 GM in DEXTROSE 5%-WATER - 50 ML IVPB SCH (09:50)
[2023-04-16] MEDS: amLODIPine BESYLATE 5 MG TABLET (FP) PO SCH (09:50)
[2023-04-16] MEDS: PANTOPRAZOLE 40 MG TABLET PO SCH (09:50)
[2023-04-16] MEDS: THIAMINE HCL 100 MG TABLET (FP) PO SCH (09:50)
[2023-04-16] MEDS: FOLIC ACID 1 MG TABLET (FP) PO SCH (09:50)
[2023-04-16] MEDS: LISINOPRIL 20 MG TABLET PO SCH (09:51)
[2023-04-16] MEDS: BUDESONIDE/FORMETEROL FUMARATE 80/4.5 mcg INHALER IH SCH (09:58)
[2023-04-16] MEDS: TIOTROPIUM BROMIDE 2.5 MCG (SPIRIVA) RESPIMAT INHALER IH SCH (09:58)
[2023-04-16] MEDS: ENOXAPARIN NA (PORCINE) 80 MG/0.8 ML DISP.SYRIN SQ SCH (09:59)
[2023-04-16] MEDS: COLLAGENASE CLOSTRIDIUM HIST. 30 GRAMS TUBE TP SCH (10:00)
[2023-04-16] MEDS ORDERED: predniSONE 20 MG TABLET (UD) PO SCH (10:00)
[2023-04-16] MEDS: CLOTRIMAZOLE 1% CREAM TP SCH (10:01)
[2023-04-16] MEDS: DOCUSATE SODIUM 100 MG CAPSULE (FP) PO SCH (10:01)
[2023-04-16 10:05] LABS: HEMATOCRIT 38.8 % (35.4-49); HEMOGLOBIN 12.7 GM/dL (11.7-16.9); MCHC 32.7 g/dl (32.0-35.9); MEAN CELL VOLUME 91.9 fl (80-96); PLATELET COUNT 367 10^3/uL (134-434); RBC 4.23 M/mm3 (4.00-5.60); RDW 16.6 % (11.9-15.9); WHITE BLOOD COUNT 16.5 K/mm3 (4.0-10.0)
[2023-04-16 10:31] LABS: POTASSIUM 4.3 mmol/L (3.5-5.1)
[2023-04-16 10:34] LABS: ANISOCYTOSIS 0; HELMET CELLS 0; HOWELL-JOLLY BODIES 0; MACROCYTOSIS 0; OVALOCYTE 0; ROULEAU 0; SICKELED CELLS 0; TARGET CELLS 0; TEAR DROP CELLS 0; TOXIC GRANULATION 0
[2023-04-16 10:35] VITALS: BP 127/81; PULSE 77; RESP 20; TEMP 98.3
[2023-04-16 10:42] LABS: ALBUMIN 2.8 g/dl (3.4-5.0)
[2023-04-16 10:44] LABS: BLOOD UREA NITROGEN 27.5 mg/dL (7-18); CALCIUM 9.1 mg/dL (8.5-10.1); MAGNESIUM 2.3 mg/dL (1.8-2.4)
[2023-04-16 10:53] LABS: CREATININE 0.9 mg/dL (0.55-1.3)
[2023-04-16 11:02] LABS: BILIRUBIN,TOTAL 0.4 mg/dL (0.2-1)
== END 2023-04-16 13:39 | disposition left against medical advice (07) | DRG 141 ==
LOC: JER 00:12 → JERBED 04:18 → J4W 07:47 → J8W 04-12 14:15
PROVIDERS: ADMIT Internal Medicine; ATTEND Nurse Practitioner Family
DX: J45.901 Unspecified asthma with (acute) exacerbation (principal); J96.01 Acute respiratory failure with hypoxia; J44.1 Chronic obstructive pulmonary disease with (acute) exacerbation; F11.20 Opioid dependence, uncomplicated; L03.115 Cellulitis of right lower limb; F14.20 Cocaine dependence, uncomplicated; I10 Essential (primary) hypertension; E88.09 Other disorders of plasma-protein metabolism, not elsewhere classified; F20.9 Schizophrenia, unspecified; L97.919 Non-pressure chronic ulcer of unspecified part of right lower leg with unspecified severity; F17.210 Nicotine dependence, cigarettes, uncomplicated; F19.20 Other psychoactive substance dependence, uncomplicated; J98.11 Atelectasis; L85.3 Xerosis cutis; Z59.00 Homelessness unspecified; E46 Unspecified protein-calorie malnutrition; Z68.22 Body mass index [BMI] 22.0-22.9, adult
CPT/HCPCS: 0241U-QW; 36415; 71045-TC-FY; 73700-TC-RT; 80048; 80053; 82803; 83735; 84100; 84484; 85025; 85610; 85651; 85730; 86140; 87040; 87070; 87186; 87205; 93005; 93010; 93926-TC; 94640; 94660; 97116-GP; 97161-GP; 99285-25